=== PATIENT | male | born 1945 | race Caucasian/White ===

== ENCOUNTER 2016-04-01 07:39 | Emergency (ER) | payer MEDICARE ==
[2016-03-19 10:42] VITALS: BMI 27.9
[~2016-04-01 07:39] MED LIST: ABILIFY10 MG PO; AMOXICILLIN500 M1 PO; AMPICILLIN TRI250 MG PO; ASPIRIN81 MG PO; BAYER CHEWABLE81 MG PO; BIAXIN 500 MG500 MG PO; CARAFATE1 G PO; CELEXA20 MG PO; CLONAZEPAM0.25 MG/TA PO; COLACE100 MG PO; DESERYL100 MG PO; DULCOLAX5 MG PO; DUONEB 2.5-0.5 M3 ML NEB; FLOMAX0.4 MG PO; GLUCOPHAGE500 MG PO; HCTZ25 MG PO; HYDROCODONE-APA1 TAB PO; IMDUR30 MG PO; IPRAT-ALBUT 0.5-3 ML UPD; LEVAQUIN750 MG PO; LOPRESSOR25 MG PO; MILK OF MAGNESI30 ML PO; MIRALAX17 GM; MIRALAX17 GM PO; MORPHINE SULF5 MG/ML; MYLANTA LIQUID355 ML PO; NITRO-BID60 GM TP; NITROSTAT0.4 MG SL; NORCO 10/325 TA1 TA1 PO; NORCO 5/325 TAB1 TA1 PO; PEPCID20 MG PO; PHENERGAN25 M1 PO; PLAVIX75 MG PO; PROTONIX40 MG PO; PROZAC20 MG PO; REGLAN10 MG PO; REMERON45 MG PO; SALINE FLUSH10 ML IV; SEROQUEL100 MG PO; SEROQUEL200 MG PO; SEROQUEL300 MG PO; VITAMIN B-1000 MCG/M IM; VITAMIN B-121000 MC3 PO; VITAMIN B-12500 MCG PO; VITAMIN D2000 UNIT PO; VITAMIN D5000 UNIT PO; VOLTAREN100 GM TP; XANAX0.5 MG PO; ZOFRAN4 MG PO
[2016-04-01 09:03] LABS: BASOPHILS 0.3 % (0.0-2.0); HEMATOCRIT 33.5 % (42.0-54.0); HEMOGLOBIN 10.8 g/dL (13.5-17.5); IMMATURE GRANULOCYTES 0.3 % (0-5); LYMPHOCYTES 14.5 % (15-50); MCH 29.8 pg (26.0-34.0); MCHC 32.2 g/dL (31.0-37.0); MCV 92.3 fL (80.0-100.0); MEAN PLATELET VOLUME 10.7 fL (7.4-10.4); MONOCYTES 8.5 % (2-11); NEUTROPHILS 74.4 % (40-80); RBC 3.63 10x6/uL (4.20-6.10); RDW 18.3 % (11.5-14.5); WBC 8.9 10x3/uL (4.8-10.8)
[2016-04-01 09:08] LABS: PLATELET COUNT 384 10x3/uL (130-400)
[2016-04-01 09:21] LABS: ALBUMIN 3.4 g/dL (3.4-5.0); ALKALINE PHOSPHATASE 81 U/L (46-116); ALT (SGPT) 17 U/L (10-68); CALC OSMOLALITY 278 mosm/kg (275-300); CALCIUM 8.3 mg/dL (8.5-10.1); CARBON DIOXIDE 23.8 mmol/L (21.0-32.0); CHLORIDE - SERUM 103 mmol/L (98-107); GLUCOSE 132 mg/dL (74-106); POTASSIUM - SERUM 4.2 mmol/L (3.5-5.1); SODIUM 138 mmol/L (136-145); UREA NITROGEN 14 mg/dL (7-18); eGFR NON AFRICAN AMERICAN 78 mL/min (90-120)
[2016-04-01 09:27] LABS: PRO BNP 777 pg/mL (0-125)
== END 2016-04-01 10:52 | disposition home or self-care (01) ==
LOC: D.ER 07:39
PROVIDERS: Emergency Medicine
DX: J44.1 Chronic obstructive pulmonary disease with (acute) exacerbation (principal); I50.9 Heart failure, unspecified

== ENCOUNTER 2016-04-15 16:18 | Emergency (ER) | payer MEDICARE ==
[2016-03-19 10:42] VITALS: BMI 27.9
[2016-04-15 16:38] LABS: BASOPHILS 0.5 % (0.0-2.0); EOSINOPHILS 3.1 % (0-7); HEMATOCRIT 29.6 % (42.0-54.0); HEMOGLOBIN 9.7 g/dL (13.5-17.5); IMMATURE GRANULOCYTES 0.1 % (0-5); LYMPHOCYTES 28.2 % (15-50); MCH 29.6 pg (26.0-34.0); MCHC 32.8 g/dL (31.0-37.0); MCV 90.2 fL (80.0-100.0); MEAN PLATELET VOLUME 9.9 fL (7.4-10.4); MONOCYTES 7.8 % (2-11); NEUTROPHILS 60.3 % (40-80); PLATELET COUNT 403 10x3/uL (130-400); RBC 3.28 10x6/uL (4.20-6.10); RDW 18.1 % (11.5-14.5); WBC 7.8 10x3/uL (4.8-10.8)
[2016-04-15 17:19] LABS: APTT 28.4 SECONDS (22.8-39.4); INR 1.08 (0.85-1.17); PROTIME 13.8 SECONDS (11.6-15.0)
[2016-04-15 18:15] LABS: ALBUMIN 3.4 g/dL (3.4-5.0); ALKALINE PHOSPHATASE 80 U/L (46-116); ALT (SGPT) 19 U/L (10-68); AMYLASE - SERUM 61 U/L (25-115); BILIRUBIN - TOTAL 0.25 mg/dL (0.2-1.3); CALC OSMOLALITY 276 mosm/kg (275-300); CALCIUM 9.3 mg/dL (8.5-10.1); CARBON DIOXIDE 23.5 mmol/L (21.0-32.0); CHLORIDE - SERUM 105 mmol/L (98-107); LIPASE 101 U/L (73-393); POTASSIUM - SERUM 4.3 mmol/L (3.5-5.1); PROTEIN - SERUM 7.8 g/dL (6.4-8.2); SODIUM 140 mmol/L (136-145); UREA NITROGEN 11 mg/dL (7-18); eGFR NON AFRICAN AMERICAN 78 mL/min (90-120)
[2016-04-15 18:16] LABS: GLUCOSE 81 mg/dL (74-106)
== END 2016-04-15 19:10 | disposition home or self-care (01) ==
LOC: D.ER 16:18
PROVIDERS: Emergency Medicine; Nurse Practitioner Acute Care
DX: R10.9 Unspecified abdominal pain (principal)

== ENCOUNTER 2016-04-20 15:09 | Emergency (ER) | payer MEDICARE ==
[2016-03-19 10:42] VITALS: BMI 27.9
== END 2016-04-20 17:41 | disposition left against medical advice (07) ==
LOC: D.ER 15:09
DX: R11.2 Nausea with vomiting, unspecified (principal)

== ENCOUNTER 2016-04-21 11:05 | Emergency (ER) | payer MEDICARE ==
[2016-03-19 10:42] VITALS: BMI 27.9
[2016-04-21 11:55] LABS: BASOPHILS 0.3 % (0.0-2.0); EOSINOPHILS 2.1 % (0-7); HEMATOCRIT 31.4 % (42.0-54.0); HEMOGLOBIN 10.4 g/dL (13.5-17.5); IMMATURE GRANULOCYTES 0.2 % (0-5); LYMPHOCYTES 29.9 % (15-50); MCH 30.1 pg (26.0-34.0); MCHC 33.1 g/dL (31.0-37.0); MEAN PLATELET VOLUME 9.8 fL (7.4-10.4); MONOCYTES 8.7 % (2-11); NEUTROPHILS 58.8 % (40-80); PLATELET COUNT 475 10x3/uL (130-400); RBC 3.45 10x6/uL (4.20-6.10); RDW 18.8 % (11.5-14.5); WBC 6.3 10x3/uL (4.8-10.8)
[2016-04-21 12:10] LABS: ALBUMIN 3.5 g/dL (3.4-5.0); ALKALINE PHOSPHATASE 85 U/L (46-116); ALT (SGPT) 16 U/L (10-68); BILIRUBIN - TOTAL 0.32 mg/dL (0.2-1.3); CALC OSMOLALITY 276 mosm/kg (275-300); CALCIUM 9.6 mg/dL (8.5-10.1); CARBON DIOXIDE 26.9 mmol/L (21.0-32.0); CHLORIDE - SERUM 104 mmol/L (98-107); GLUCOSE 99 mg/dL (74-106); PROTEIN - SERUM 8.8 g/dL (6.4-8.2); SODIUM 140 mmol/L (136-145); UREA NITROGEN 7 mg/dL (7-18); eGFR NON AFRICAN AMERICAN 78 mL/min (90-120)
[2016-04-21 12:14] LABS: APTT 28.6 SECONDS (22.8-39.4)
[2016-04-21 12:21] LABS: INR 0.97 (0.85-1.17); PROTIME 12.7 SECONDS (11.6-15.0)
== END 2016-04-21 14:33 | disposition home or self-care (01) ==
LOC: D.ER 11:05
PROVIDERS: Emergency Medicine
DX: R10.9 Unspecified abdominal pain (principal); R11.10 Vomiting, unspecified; E11.9 Type 2 diabetes mellitus without complications; I10 Essential (primary) hypertension

== ENCOUNTER 2016-04-24 05:22 | Emergency (ER) | payer MEDICARE ==
[2016-03-19 10:42] VITALS: BMI 27.9
== END 2016-04-24 05:44 | disposition home or self-care (01) ==
LOC: D.ER 05:22
DX: S39.012A Strain of muscle, fascia and tendon of lower back, initial encounter (principal); W01.0XXA Fall on same level from slipping, tripping and stumbling without subsequent striking against object, initial encounter; Y93.89 Activity, other specified; Y92.019 Unspecified place in single-family (private) house as the place of occurrence of the external cause; M48.36 Traumatic spondylopathy, lumbar region

== ENCOUNTER 2016-05-20 08:06 | Emergency (ER) | payer MEDICARE ==
[2016-03-19 10:42] VITALS: BMI 27.9
== END 2016-05-20 08:49 | disposition home or self-care (01) ==
LOC: D.ER 08:06
DX: S39.012A Strain of muscle, fascia and tendon of lower back, initial encounter (principal); W19.XXXA Unspecified fall, initial encounter; Y93.89 Activity, other specified; Y92.89 Other specified places as the place of occurrence of the external cause; M51.36 Other intervertebral disc degeneration, lumbar region

== ENCOUNTER 2016-05-21 14:15 | Emergency (ER) | payer MEDICARE ==
[2016-03-19 10:42] VITALS: BMI 27.9
== END 2016-05-21 17:48 | disposition home or self-care (01) ==
LOC: D.ER 14:15
DX: M25.552 Pain in left hip (principal)

== ENCOUNTER 2016-06-02 14:09 | Emergency (ER) | payer MEDICARE ==
[2016-03-19 10:42] VITALS: BMI 27.9
== END 2016-06-02 19:45 | disposition home or self-care (01) ==
LOC: D.ER 14:09
DX: M25.562 Pain in left knee (principal); M25.561 Pain in right knee; M54.5 Low back pain; M92.51 Juvenile osteochondrosis of proximal tibia; Z91.81 History of falling

== ENCOUNTER 2016-06-09 11:38 | Inpatient (IN) | payer MEDICARE ==
[~2016-06-09] VITALS: Ht 170.2 cm; Wt 77.1 kg
[2016-06-09 10:50] VITALS: BP 154/74
--- NOTE | 2016-06-09 10:50 | NUR ---
RECEIVED PATIENT FROM [facility] ER, PATIENT THERE FOR SUICIDE ATTEMPT, HAD TAKEN MORE IMDUR THAN HE SHOULD THIS AM. ARRIVED PER EMS ON STRETCHER, PATIENT ABLE TO AMBULATE. ALERT AND ORIENTED TIMES THREE, PER RECORDS HAS HISTORY OF DEMENTIA, BUT PRESENTS ORIENTED WITH APPROPRIATE RESPONSE TO QUESTIONS. STATES HE HAD BEEN OFF HIS MEDICATIONS, KNEW WHAT HE DID WAS NOT RIGHT, " I NEED TO BE BACK ON MY MEDICATIONS." CONTRACTED FOR SAFETY WITH NO CURRENT SUICIDAL IDEATIONS. ASSESSMENT COMPLETE. COOPERATIVE. PATIENT ARRIVED IN HOSPITAL GOWN ONLY, ASKED EMS AT THAT TIME IF PATIENT HAD ANY BELONGINGS, THEY STATED NO. PATIENT WITHOUT ANY BELONGINGS. ORIENTED TO UNIT.
[2016-06-09] MEDS ORDERED: SEROQUEL25 MG PO (13:56)
[2016-06-09] MEDS ORDERED: PEPCID20 MG PO (13:57)
[2016-06-09] MEDS ORDERED: ZOCOR40 MG PO (13:58)
[2016-06-09] MEDS ORDERED: REMERON15 MG PO (13:58)
[2016-06-09] MEDS ORDERED: ISOSORBIDE MONO30 M1 PO (13:59)
[2016-06-09] MEDS ORDERED: FOLBEE PLUS TAB1 TAB PO (14:00)
[2016-06-09] MEDS ORDERED: COLACE100 MG PO (14:03)
[2016-06-09] MEDS ORDERED: IPRAT-ALBUT 0.5-3 ML UPD (14:04)
[2016-06-09] MEDS ORDERED: HYDROCODONE-APA1 TAB PO (15:07)
[2016-06-09 15:32] LABS: BASOPHILS 0.2 % (0.0-2.0); EOSINOPHILS 0.3 % (0-7); HEMATOCRIT 34.2 % (42.0-54.0); HEMOGLOBIN 11.2 g/dL (13.5-17.5); IMMATURE GRANULOCYTES 0.2 % (0-5); LYMPHOCYTES 21.2 % (15-50); MCH 29.9 pg (26.0-34.0); MCHC 32.7 g/dL (31.0-37.0); MCV 91.2 fL (80.0-100.0); MEAN PLATELET VOLUME 10.6 fL (7.4-10.4); MONOCYTES 9.4 % (2-11); NEUTROPHILS 68.7 % (40-80); PLATELET COUNT 425 10x3/uL (130-400); RBC 3.75 10x6/uL (4.20-6.10); RDW 17.9 % (11.5-14.5); WBC 6.6 10x3/uL (4.8-10.8)
--- NOTE | 2016-06-09 15:58 | NUR ---
CONTACTED PHARMACY REGARDING PATIENT TAKES HYDROCODONE PRN FOR BACK PAIN, ATTEMPTED TO PUT IN ORDER AND IT CONFLITS WITH ALLERGIES OF PERCOCET AND ULTRAM. OK PER PHARMACIST RICH
[2016-06-09 16:06] LABS: HEMOGLOBIN A1C 5.6 % (4.8-6.0)
[2016-06-09 16:20] VITALS: BP 154/74; Ht 170.2 cm; Wt 77.1 kg
--- NOTE | 2016-06-09 16:30 | NUR ---
PATIENT STATING THAT HE DROVE HIMSELF TO [facility] ER, HAD ON CLOTHING, A WALLET AND HIS CARE KEYS. NURSE REMINDED PATIENT THAT WHILE HE WAS ON STRETCHER I ASKED EMS STAFF IF HE HAD BELONGINGS AND THEY STATED NO. CALLED PLACED TO [facility] SPOKE WITH NURSE KYMBERLY SINCLAIR RN REGARDING PATIENT CONCERNS REGARDING HIS BELONGINGS DID NOT COME WITH HIM TO JAIL, SHE STATES THEY WERE GIVEN TO EMS STAFF BUT SHE WOULD DOUBLE CHECK THIS AND CALL US BACK. INFORMED PAITENT THAT I DID FOLLOW UP REGARDING HIS BELONGINGS AND THEY WERE CHECKING." SOMEBODY BETTER FIND THEM, OR IM GOING TO SEND MY BROTHER TO GET THEM, OR I WILL HAVE TO WHEN I GET OUT OF HERE." ASSURED PATIENT THAT WE WERE CHECKING ON IT.
[2016-06-09 16:38] LABS: ALBUMIN 3.6 g/dL (3.4-5.0); ALKALINE PHOSPHATASE 85 U/L (46-116); ALT (SGPT) 17 U/L (10-68); BILIRUBIN - TOTAL 0.35 mg/dL (0.2-1.3); CALC OSMOLALITY 279 mosm/kg (275-300); CALCIUM 9.3 mg/dL (8.5-10.1); CARBON DIOXIDE 26.5 mmol/L (21.0-32.0); CHLORIDE - SERUM 104 mmol/L (98-107); CHOL - HDL RATIO 3.6 ratio (2.3-4.9); CHOLESTEROL, TOTAL 138 mg/dL (0-200); CREATININE - SERUM 0.7 mg/dL (0.6-1.3); GLUCOSE 108 mg/dL (74-106); HDL CHOLESTEROL 38 mg/dL (32-96); LDL CHOLESTEROL 80 mg/dL (0-100); LDL-HDL RATIO 2.1 ratio (1.5-3.5); POTASSIUM - SERUM 4.5 mmol/L (3.5-5.1); PROTEIN - SERUM 8.2 g/dL (6.4-8.2); SODIUM 140 mmol/L (136-145); THYROID STIMULATING HORMONE 0.31 uIU/mL (0.36-3.74); TRIGLYCERIDE 101 mg/dL (30-200); UREA NITROGEN 12 mg/dL (7-18); eGFR NON AFRICAN AMERICAN > 90 mL/min (90-120)
[2016-06-09 17:00] LABS: COLOR YELLOW (YELLOW)
[2016-06-09 17:01] LABS: APPEARANCE CLEAR (CLEAR); BILIRUBIN NEGATIVE (NEGATIVE); GLUCOSE NEGATIVE (NEGATIVE); KETONE NEGATIVE (NEGATIVE); LEUKOCYTE ESTERASE NEGATIVE (NEGATIVE); NITRITE NEGATIVE (NEGATIVE); PROTEIN NEGATIVE (NEGATIVE); SPECIFIC GRAVITY 1.015 (1.005-1.020); UROBILINOGEN NORMAL (NORMAL)
--- NOTE | 2016-06-09 17:03 | PSY ---
PATIENT NAME:MATT PABLO MEDICAL RECORD: [id number] : 47 LOCATION:[facility] ADMISSION DATE: 06/09/16 ACCOUNT: [id number] PSYCHIATRIC EVALUATION DATE OF EVALUATION: 06/09/16 Initial Psychiatric Workup IDENTIFYING DATA: This is one of numerous psychiatric hospitalizations in his lifetime for this 71-year-old white male. HISTORY OF PRESENT ILLNESS: This patient was accepted on transfer from [facility] Emergency Department. He had been having suicidal ideation and took an unknown quantity of Imdur yesterday in a suicide attempt. On interview today, the patient states that he had become very distraught about the situation with one of his daughters who lives in [place]. The patient himself had actually moved to [place] and live there for about 8 or 9 months, but had become estranged from the daughter and moved back home. The daughter evidently had returned to drug use, which upset the patient greatly. Also, while he was in [place], he had reestablished contact with ex-. However, she recently and the patient states that he became despondent over these things. He had moved back down to [place] and is living with a relative, but became quite depressed. The patient in the past has shown a significant depressive symptoms and has been treated with antidepressants. He also has had episodic psychotic symptoms and has been treated with neuroleptics such as Seroquel. In the past, he has had difficulties with drug and alcohol abuse, although he states at the present time, he is not abusing anything. In the past, he has had a number of hospitalizations because of suicidality or actual suicide attempts. Typically, he does well after a fairly brief hospital stays. PAST MEDICAL HISTORY: Significant for type 2 diabetes, coronary artery disease, benign prostatic hypertrophy, and anemia. FAMILY HISTORY: Significant for depression in several family members. SOCIAL HISTORY: The patient does have a long past history of alcoholism and multiple medication abuse. 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 He is currently living with a brother. ALLERGIES: INCLUDE OXYCODONE, TRAMADOL, AND NAPROXEN. MENTAL STATUS: On interview, the patient is pleasant and cooperative and makes good eye contact. Mood is dysphoric. Affect is bland. Speech is fairly fluent. Content of thought is positive for recent suicidal ideation. Sensorium is essentially clear. The patient is oriented to person, place and time. Fairly intact. Memory, concentration is fair. DIAGNOSTIC IMPRESSION: AXIS I: Major depressive disorder -- recurrent, history of polysubstance abuse. AXIS II: Cluster C personality traits. AXIS III: Type 2 diabetes, history of unstable angina, hypertension and gastroesophageal reflux disease. AXIS IV: Moderate. AXIS V: 36. PLAN: 1. The patient is admitted for medication revision as indicated. 2. Supportive therapy. 3. We will coordinate with the patient regarding aftercare. TRANSINT:[id number] Voice Confirmation ID: [id number] DOCUMENT ID: [id number] GAYE CORDOVA III, MD at 1703 CC: [id number] DICTATION DATE: 06/09/16 1204 ASSEMBLY MACHINE SET UP MECHANIC: 06/09/16 1331 ADM IN [facility] [address] [place] [address]
[2016-06-09 19:42] VITALS: BP 136/55
[2016-06-09 21:56] VITALS: BP 136/55
--- NOTE | 2016-06-10 02:38 | NUR ---
B) Recieved patient in the day room sitting in a chair and watching TV, no SI this shift, alert and oriented X 3, I) Administered perscribed medications, redirected as needed, contracted for safety, R) Medication compliant, calm and cooperative, P0 Continue plan of care, continue to monitor for safety.
--- NOTE | 2016-06-10 06:23 | NUR ---
PRN NORCO GIVEN FOR BACK PAIN 8 OF 10 AT 0620.
[2016-06-10 08:00] VITALS: BP 136/65
[2016-06-10 11:18] VITALS: BP 136/65
--- NOTE | 2016-06-10 11:50 | NUR ---
Follow up with [facility] regarding patient belongings, per aPula Alcantar , she has located them and has them locked up in ER. Informed her that patient brother Edison will retrieve those items today. Nurse spoke to patient brother per his request to give him code word, visitation hours, to bring him clothing and to turkey picker his belonging at [facility].
--- NOTE | 2016-06-10 12:46 | NUR ---
B.) Alert and oriented times four. Patient has insight to reason he is here. "I know I should'nt have done that, I just need my meds started back up right." Positive outlook, "I know once I'm back on my meds everything will be ok, I'm going back to work and working keeps me happy." I.) Administer medications and monitor compliance. Assess for any suicidal ideations or depression. Contract for safety. Encourage expression of feelings. R.) Compliant with medications. Contracted for safety. Social with others and actively participated group. Smiles and converses with staff. No suicidal ideations. Safety monitored. Continue with plan of care and monitoring.
--- NOTE | 2016-06-10 19:57 | NUR ---
RECEIVED IN DAYROOM. SITTING IN RECLINER WATCHING TV. NOT SOCIALIZING WITH PEERS. ALERT AND ORIENTED. DENIES THOUGHTS OF SELF HARM. SOCIAL WITH THIS STAFF MEMBER. REMINISCING ABOUT THE LAST TIME WE HAD SEEN EACH OTHER HERE. ENCOURAGE TO EXPRESS ANY FEELINGS OF SELF HARM. CONTINUES TO SIT QUIETLY IN CHAIR. CONTINUE PLAN OF CARE
[2016-06-10 20:00] VITALS: BP 114/50
[2016-06-10 21:00] VITALS: BP 114/50
[2016-06-11 08:20] LABS: RAPID PLASMA REAGIN Non Reactive (Non Reactive)
[2016-06-11 09:17] LABS: FOLATE (FOLIC ACID) - SERUM 13.6 ng/mL (>3.0); VITAMIN D 25 HYDROXY 27.1 ng/mL (30.0-100.0)
[2016-06-11 09:50] VITALS: BP 100/64
--- NOTE | 2016-06-11 11:05 | PN ---
PATIENT:MATT PABLO MEDICAL RECORD: [id number] LOCATION:[facility] ADMISSION DATE: 06/09/16 PROGRESS NOTE DATE OF SERVICE: 06/10/2016 SUBJECTIVE: No new complaint. OBJECTIVE: The patient is showing some improvement. He is tolerating the Lexapro well. No further suicidal statements or behaviors. On exam, mood is for the most part euthymic. Affect is bland. Speech is fairly fluent. Content of thought is negative for suicidal intents. Sensorium is unchanged. ASSESSMENT: No change in diagnosis. PLAN: 1. Maintain current medications and supportive therapy. 2. The patient continues to do well, anticipate discharge tomorrow. TRANSINT:[id number] Voice Confirmation ID: [id number] DOCUMENT ID: [id number] GAYE CORDOVA III, MD at 1105 CC: [id number] DICTATION DATE: 06/10/16 1235 MILK RECEIVER TANK TRUCK: 06/10/16 1256 ADM IN [place] [id number] [place] [id number]
[2016-06-11] MEDS ORDERED: LEXAPRO10 MG PO (11:31)
--- NOTE | 2016-06-11 13:23 | NUR ---
SW SPOKE WITH PT AGAIN AND OFFERED OUTPATIENT SERVICES. PT STATED HE DOES NOT WANT TO GO TO OUTPATIENT TREATMENT.
--- NOTE | 2016-06-11 16:18 | NUR ---
B) Alert and oriented, pleasant mood, med compliant, cooperative, no aggressive behavior reported, no suicidal ideations reported. I) Admin meds as ordered, provide group activity. R) no s/s adverse reaction to medications noted, brenna well. P)Cont plan of care including meds and group therapy until discharge later this shift.
--- NOTE | 2016-06-11 18:00 | NUR ---
PATIENT DISCHARGED TO HOME VIA PRIVATE VEHICLE. PERSONAL BELONGINGS RETURNED TO PATIENT. PRESCRIPION CALLED INTO PHARMANCY OF PATIENT'S CHOICE. DISCHARGE PAPERWORK FAXED TO PATIENT'S PCP. CONDITION STABLE AT TIME OF DISCHARE.
--- NOTE | 2016-06-12 10:46 | DS ---
PATIENT:MATT PABLO :47 MEDICAL RECORD: [id number] DISCHARGE SUMMARY ADMISSION DATE: 06/09/16 DISCHARGE DATE: 06/11/16 DATE OF ADMISSION: 06/09/2016 DATE OF DISCHARGE: 06/11/2016 HISTORY OF PRESENT ILLNESS: One of numerous psychiatric hospitalizations for this 71-year-old white male, the patient has a long past history of depression and polysubstance abuse. He had become upset regarding family situation. He had been living in [place] for a while and recently returned to [place]. He overdosed on Imdur. For further details, please see previously dictated history. COURSE IN THE HOSPITAL: The patient was seen in consultation by Dr. Waters, who noted the ongoing comorbidities of hypertension, type 2 diabetes, coronary artery disease, hyperlipidemia, prostatic hypertrophy, peptic ulcer disease, chronic low back pain and constipation. The patient was started on Lexapro 10 mg daily for his depressive symptoms. He was maintained on Remeron 15 mg at bedtime for additional antidepressant affect as well as assistance with insomnia. The patient did well, showed a good resolution of his suicidal ideation and was in stable euthymic mood. At the time of discharge, he does have strong family support. He has a job that he will be returning to tomorrow. Nonpsychiatric medications that were continued included vitamin B supplements, Colace, Glucophage, Imdur, Zocor, Pepcid, Plavix, p.r.n. [place] and p.r.n. Ativan. FINAL DIAGNOSES: AXIS I: Major depressive disorder -- recurrent, history of polysubstance abuse. AXIS II: Cluster C personality traits. AXIS III: Type 2 diabetes, history of angina, hypertension, hypercholesterolemia, gastroesophageal reflux disease. AXIS IV: Moderate. AXIS V: 50. PLAN: 1. The patient is discharged on current medications. 2. Follow up with his primary care physician. 3. Diet and activities as tolerated. TRANSINT:[id number] Voice Confirmation ID: [id number] DOCUMENT ID: [id number] GAYE CORDOVA III, MD at 1046 CC: [id number] DICTATION DATE: 06/11/16 1135 REPAIRER SASH AND DOOR: 06/12/16 0915 DIS IN 06/11/16 [facility] [address] [place] [address]
== END 2016-06-11 18:00 | disposition home or self-care (01) | DRG 885 ==
LOC: D.PSYCH 11:38
PROVIDERS: ADMIT Psychiatry & Neurology Psychiatry
DX: F33.9 Major depressive disorder, recurrent, unspecified (principal); R45.851 Suicidal ideations; E11.9 Type 2 diabetes mellitus without complications; I10 Essential (primary) hypertension; E78.5 Hyperlipidemia, unspecified; K21.9 Gastro-esophageal reflux disease without esophagitis; I25.10 Atherosclerotic heart disease of native coronary artery without angina pectoris; F03.90 Unspecified dementia, unspecified severity, without behavioral disturbance, psychotic disturbance, mood disturbance, and anxiety; Z91.81 History of falling; G89.29 Other chronic pain; M54.9 Dorsalgia, unspecified; K59.00 Constipation, unspecified; J44.9 Chronic obstructive pulmonary disease, unspecified; Z87.891 Personal history of nicotine dependence; F10.21 Alcohol dependence, in remission; E55.9 Vitamin D deficiency, unspecified

== ENCOUNTER 2016-06-16 13:45 | Emergency (ER) | payer MEDICARE ==
[~2016-06-16 13:45] MED LIST changes: +FOLBEE PLUS TAB1 TAB PO; +ISOSORBIDE MONO30 M1 PO; +LEXAPRO10 MG PO; +REMERON15 MG PO; +SEROQUEL25 MG PO; +ZOCOR40 MG PO
== END 2016-06-16 15:10 | disposition home or self-care (01) ==
LOC: D.ER 13:45
DX: M54.5 Low back pain (principal); S39.012A Strain of muscle, fascia and tendon of lower back, initial encounter; W19.XXXA Unspecified fall, initial encounter; Y93.89 Activity, other specified; Y92.019 Unspecified place in single-family (private) house as the place of occurrence of the external cause; M62.830 Muscle spasm of back; M54.30 Sciatica, unspecified side; E11.9 Type 2 diabetes mellitus without complications

== ENCOUNTER 2016-06-17 11:11 | Emergency (ER) | payer MEDICARE ==
[2016-06-17 12:47] LABS: BASOPHILS 0.3 % (0.0-2.0); EOSINOPHILS 1.8 % (0-7); HEMATOCRIT 31.9 % (42.0-54.0); HEMOGLOBIN 10.4 g/dL (13.5-17.5); IMMATURE GRANULOCYTES 0.1 % (0-5); LYMPHOCYTES 30.3 % (15-50); MCH 30.3 pg (26.0-34.0); MCHC 32.6 g/dL (31.0-37.0); MEAN PLATELET VOLUME 10.5 fL (7.4-10.4); MONOCYTES 6.4 % (2-11); NEUTROPHILS 61.1 % (40-80); PLATELET COUNT 421 10x3/uL (130-400); RBC 3.43 10x6/uL (4.20-6.10); RDW 17.3 % (11.5-14.5); WBC 7.1 10x3/uL (4.8-10.8)
[2016-06-17 13:00] LABS: ALBUMIN 3.6 g/dL (3.4-5.0); ALKALINE PHOSPHATASE 77 U/L (46-116); ALT (SGPT) 17 U/L (10-68); BILIRUBIN - TOTAL 0.26 mg/dL (0.2-1.3); CALC OSMOLALITY 281 mosm/kg (275-300); CALCIUM 9.1 mg/dL (8.5-10.1); CARBON DIOXIDE 25.5 mmol/L (21.0-32.0); CHLORIDE - SERUM 107 mmol/L (98-107); GLUCOSE 99 mg/dL (74-106); POTASSIUM - SERUM 4.7 mmol/L (3.5-5.1); PROTEIN - SERUM 8.2 g/dL (6.4-8.2); SODIUM 141 mmol/L (136-145); UREA NITROGEN 15 mg/dL (7-18); eGFR NON AFRICAN AMERICAN 78 mL/min (90-120)
[2016-06-17 13:08] LABS: CREATINE KINASE 195 UL (21-232)
[2016-06-17 13:11] LABS: TROPONIN-I < 0.017 ng/mL (0.000-0.060)
== END 2016-06-17 13:41 | disposition home or self-care (01) ==
LOC: D.ER 11:11
PROVIDERS: Nurse Practitioner Family
DX: J20.9 Acute bronchitis, unspecified (principal); B34.9 Viral infection, unspecified; R07.89 Other chest pain

== ENCOUNTER 2016-07-19 16:53 | Observation (INO) | payer MEDICARE ==
[~2016-07-19] VITALS: Ht 170.2 cm; Wt 77.3 kg
--- NOTE | ~2016-07-19 | HEMODYNAMI ---
PATIENT:MATT PABLO MEDICAL RECORD: [id number] : 47 LOCATION:[facility] D.2114 ADMISSION DATE: 07/19/16 Generatedon:07/20/201612:53 Patient name: MATT PABLO Patient #: [id number] SSN: [id number] : 1945 Date of study: 07/20/2016 Page: Of Hemodynamic Procedure Report Patient Data Patient Demographics Procedure consent was obtained First Name: MATT Gender: Male Last Name: SAMY : 1945 Middle Initial: BERTA Age: 71 year(s) Patient #: [id number] Race: SSN: [id number] Additional ID: [id number] Contact details [address]: [address] [place] [address] State: [place] City: [place] Zip code: [address] Past Medical History History of disease Date Diagnosis Comments CAD Allergies Allergen Reaction Date Comments Reported Other 05/24/2014 oxycodone allergy Other 05/24/2014 propoxyphene allergy Other 05/24/2014 napsylate allergy Other 05/24/2014 tramadol allergy Other 03/19/2016 Oxycodone, HCL, allergy Tramadol HCL, Darvocet Other 07/20/2016 propoxyphhene, allergy napsylate,tramadol,HCL Admission Admission Data Admission Date: 07/19/2016 Admission Time: 20:19 Room #: D.2114 Height (in.): 67 BSA: 1.89 (m2) Height (cm.): 170.18 BMI: 26.63 (kg/m2) Weight (lbs.): 170 Weight (kg.): 77.11 Lab Results Lab Result Date: 07/20/2016 Lab Result Time: 0:00 Biochemistry Name Units Result Min Max BUN mg/dl 12 --(-*--)-- 7 18 Creatinine mg/dl 0.9 --(-*--)-- 0.6 1.3 Creatinine l 90 --(-*--)-- 21 215 Kinase Troponin l ng/ml 0.017 --(-*--)-- 0 0.06 CBC Name Units Result Min Max Hematocrit % 34.7 *-(----)-- 42 54 Hemoglobin g/dl 11 *-(----)-- 13.5 17.5 Procedure Procedure Types Cath Procedure Diagnostic Procedure [facility] w/Coronaries PCI Procedure Coronary Stent Initial PTCA Initial Miscellaneous Procedures Moderate Sedation up to 30 minutes Procedure Description Procedure Date Procedure Date: 07/20/2016 Procedure Start Time: 12:30 Procedure End Time: 12:51 Procedure Staff Name Function Calli Zaheer RT Scrub Ramírez Rahman RN Nurse Ted Justice MD Performing Physician Lan Thomson RT Monitor Procedure Data Cath Procedure Fluoroscopy Diagnostic fluoroscopy Total fluoroscopy Time: 5.3 time: 5.3 min min Diagnostic fluoroscopy Total fluoroscopy dose: 751 dose: 751 mGy mGy Contrast Material Contrast Material Type Amount (ml) Isovue 300 98 Entry Location Entry Primary Successful Side Size Upsize Upsize Entry Closure Succes sful Closure Location (Fr) 1 (Fr) 2 (Fr) Remarks Device Remarks Femoral Right 5 Fr 6 Fr Exoseal artery Short Estimated blood loss: 10 ml Diagnostic catheters Device Type Used For End Catheter Placement Cordis 5Fr Pigtail Procedure Catheter (MP) Cordis 5Fr JL 4.0 Procedure Catheter (MP) Diagnostic Infinity 5Fr Procedure JL 3.5 catheter Cordis 5Fr 3DRC Catheter Procedure (MP) Procedure Complications No complications Procedure Medications Medication Administration Route Dosage Oxygen NC 2 l/min Heparin Flush Bag added to field 2 bags (1000units/500ml NS) 0.9% NaCl I.V. 100 ml/hr Fentanyl I.V. 50 mcg Versed I.V. 1 mg Fentanyl I.V. 50 mcg Versed I.V. 1 mg Fentanyl I.V. 50 mcg Fentanyl I.V. 50 mcg Heparin Bolus I.V. 4000 units Hemodynamics Rest BSA: 1.89 (m2) HGB: 11 (g/dl) O2 Consumption: Estimated: 229.51 (ml/min) O2 Cons umption indexed: Estimated:121.43 (ml/min/m) Heart Rate: 85 (bpm) Snapshots Pre Cath Intra NCS Post Cath Vital Signs Time Heart Resp SPO2 etCO2 [id number] NIBP (mmHg) Rhythm Pain Sedation Rate (ipm) (%) (mmHg) (mmHg) Status Level (bpm) 12:11:42 74 17 100 0 0 170/82(139) NSR 0 (11) 10(A) , No pain 12:16:04 86 17 100 0 0 168/85(127) NSR 0 (11) 10(A) , No pain 12:20:28 76 17 98 0 0 160/71(126) NSR 0 (11) 10(A) , No pain 12:24:54 76 17 96 0 0 135/64(111) NSR 0 (11) 10(A) , No pain 12:29:08 75 18 97 0 0 130/71(105) NSR 0 (11) 9(A) , No pain 12:33:20 85 19 97 0 0 146/72(118) NSR 0 (11) 9(A) , No pain 12:37:34 89 18 97 0 0 140/82(110) NSR 0 (11) 9(A) , No pain 12:41:50 91 17 97 0 0 136/72(103) NSR 0 (11) 9(A) , No pain 12:46:02 95 17 98 0 0 147/77(102) NSR 0 (11) 10(A) , No pain 12:50:18 89 13 98 0 0 138/78(105) NSR 0 (11) 10(A) , No pain Medications Time Medication Route Dose Verified Delivered Reason Notes Effectiveness by by 12:12:34 Oxygen NC 2 Ramírez Simpsony Per physician l/min Josiah Rahman RN RN 12:12:44 Heparin Flush added 2 Ramírez Ramírez used for Bag to bags Josiah Rahman RN procedure (1000units/500ml field RN NS) 12:12:54 0.9% NaCl I.V. 100 Ramírez Ramírez Per physician ml/hr Josiah Rahman RN RN 12:22:42 Fentanyl I.V. 50 Ramírez Ramírez for sedation mcg Josiah Rahman RN RN 12:22:49 Versed I.V. 1 mg Ramírez Ramírez for sedation Josiah Rahman RN RN 12:28:31 Fentanyl I.V. 50 Ramírez Ramírez for sedation mcg Josiah Rahman RN RN 12:28:39 Versed I.V. 1 mg Ramírez Ramírez for sedation Josiah Rahman RN RN 12:30:28 Fentanyl I.V. 50 Ramírez Elmore for sedation mcg Josiah Rahman RN RN 12:34:03 Fentanyl I.V. 50 Ramírez Elmore for sedation mcg Josiah Rahman RN RN 12:37:06 Heparin Bolus I.V. 4000 Ramírez Elmore for units Josiah Rahman RN anticoagulation drying supervisor Log Time Note 11:51:39 Ramírez Rahman RN sent for patient. Start room use. 11:51:40 Time tracking: Regular hours 11:51:43 Plan of Care:Hemodynamics will remain stable., Cardiac rhythm will remain stable., Comfort level will be maintained., Respiratory function will remain adequate., Patient/ family verbilizes understanding of procedure., Procedure tolerated without complication., Recovers from procedure without complications.. 12:06:22 Warm blankets applied, and bria hugger turned on for patient comfort. 12:06:22 Patient received from PCU to CCL 1 Alert and oriented. Tansferred to table in Supine position. 12:06:23 Correct patient and procedure confirmed by team. 12:06:24 ECG and BP/O2 sat monitors applied to patient. 12:06:24 Signed procedure consent form obtained from patient. 12:06:25 Full Disclosure recording started 12:10:28 Vital chart was started 12:12:34 Oxygen 2 l/min NC was administered by Ramírez Rahman RN; Per physician; 12:12:44 Heparin Flush Bag (1000units/500ml NS) 2 bags added to field was administered by Ramírez Rahman RN; used for procedure; 12:12:54 0.9% NaCl 100 ml/hr I.V. was administered by Ramírez Rahman RN; Per physician; 12:14:07 Baseline sample Acquired. 12:14:11 Rhythm: sinus rhythm 12:15:36 H&P Date Dictated: 07/20/2016 Emergent; H&P N/A. 12:15:37 Pre-procedure instructions explained to patient. 12:15:38 Pre-op teaching completed and patient verbalized understanding. 12:15:40 Family unavailable. 12:15:41 Patient NPO since Midnight. 12:16:15 Patient allergic to Other allergypropoxyphhene, napsylate,tramadol,HCL 12:16:18 Is the patient allergic to Iodine/contrast media? No. 12:16:20 Is patient on blood thinner?Yes 12:16:24 ACC The patient was administered the following blood thiners within the last 24 hours: ACCPlavix 12:16:28 Patient diabetic? Yes. 12:16:29 If diabetic: On Metformin? Yes 12:16:32 If on Metformin: Last Dose? 07/19/2016 12:16:39 Previous problem with sedation/anesthesia? No ? 12:16:42 Snore? No 12:16:43 Sleep apnea? No 12:16:44 Opens mouth fully? Yes 12:16:44 Deviated septum? No 12:16:46 Sticks out tongue? Yes 12:16:49 Airway obstruction? No ? 12:16:50 Dentures? No ? 12:16:53 Pre procedure: right dorsailis pedis pulse 1+ Palpable, but thready & weak; easily obliterated 12:16:55 Patient pain scale 9/10 ?. 12:17:03 IV patent on arrival in left antecubital with 0.9% NaCl at [facility]. 12:19:53 Lab Result : Troponin l 0.017 ng/ml 12:19:53 Lab Result : Hemoglobin 11 g/dl 12:19:53 Lab Result : Hematocrit 34.7 % 12:19:53 Lab Result : BUN 12 mg/dl 12:19:53 Lab Result : Creatinine 0.9 mg/dl 12:19:53 Lab Result : Creatinine Kinase 90 l 12:19:56 Lab results completed and on chart. 12:19:58 Right groin area was prepped with chlora-prep and draped in sterile fashion 12:19:59 Alarms reviewed by R. N. 12:20:00 Sharps counted by scrub and verified by R.N. 12:20:02 Use device set Femoral Dx 12:20:03 Tegaderm 4 x 4 opened to sterile field. 12:20:05 Acist Hand Control opened to sterile field. 12:20:05 Acist Manifold opened to sterile field. 12:20:06 Bag Decanter opened to sterile field. 12:20:06 Acist Syringe opened to sterile field. 12:20:07 Terumo 5Fr [place] Sheath opened to sterile field. 12:20:07 Medline Cath Pack opened to sterile field. 12:20:08 St Buck 260cm J .035 wire opened to sterile field. 12:: Diagnostic Infinity 5Fr Multipack catheter opened to sterile field. ::52 Final Timeout: patient, procedure, and site verified with staff and physician. All members of the team are in agreement. :: --------ALL STOP TIME OUT------ :: Physician arrived 12::54 Right groin site verified by team. 12::56 Physical assessment completed. ASA score P 2 - A patient with mild systemic disease as per Ted Justice MD. 12:21:01 Sedation plan: IV Moderate Sedation Versed, Fentanyl 12::54 Zero performed for pressure channel P1 12::42 Fentanyl 50 mcg I.V. was administered by Ramírez Rahman RN; for sedation; 12::49 Versed 1 mg I.V. was administered by Ramírez Rahman RN; for sedation; 12:24:37 Zero performed for pressure channel P1 12:28:31 Fentanyl 50 mcg I.V. was administered by Ramírez Rahman RN; for sedation; 12::39 Versed 1 mg I.V. was administered by Ramírez Rahman RN; for sedation; 12:30:14 Procedure started. 12:30:16 Local anesthetic to right femoral artery with Lidocaine 2% by Ted Justice MD.INITIAL ACCESS ONLY 12:30:28 Fentanyl 50 mcg I.V. was administered by Ramírez Rahman RN; for sedation; 12::08 A 5 Fr sheath was inserted into the Right Femoral artery 12:31:19 Patient Height : 67 cm 12:31:22 Patient Weight : 170 kg 12:32:02 A Cordis 5Fr Pigtail Catheter (MP) was advanced over the wire and used for Procedure. 12:32:06 LV gram done using MATHIS 12:32:09 Injector settings: Ml/sec: 10, Volume: 20, 12:32:47 EF : 50 % 12:32:51 A Cordis 5Fr JL 4.0 Catheter (MP) was advanced over the wire and used for Procedure. 12:33:57 Catheter removed. unable to cannulate vessel. 12:34:03 Fentanyl 50 mcg I.V. was administered by Ramírez Rahman RN; for sedation; 12:34:06 A Diagnostic Infinity 5Fr JL 3.5 catheter was advanced over the wire and used for Procedure. 12:34:24 LCA angiography performed. 12:35:45 Catheter removed. 12:35:49 A Cordis 5Fr 3DRC Catheter (MP) was advanced over the wire and used for Procedure. 12:35:56 RCA angiography performed. 12:36:00 Julien iNeedisper J 300cm 0.014 guide wire opened to sterile field. 12:36:00 Dsg.nr BasixCompak Inflation Kit opened to sterile field. 12:36:06 Medtronic Launcher 6Fr EBU 3.0 guide catheter opened to sterile field. 12:36:28 Terumo 6Fr [place] Sheath opened to sterile field. 12:36:32 Catheter removed. 12:36:42 Sheath upsized to a 6 Fr Short. 12:36:50 6 Fr ebu 3 guide catheter was inserted over the wire 12:37:06 Heparin Bolus 4000 units I.V. was administered by Ramírez Rahman RN; for anticoagulation; 12:38:21 ZenDocisper wire advanced. 12:38:23 Wire advanced across lesion. 12:38:57 Inflation Number: 1 A Medtronic Resolute 3.0 X 9 stent was prepped and advanced across the Prox LAD. The stent was deployed at 21 JUSTIN for 0:10 (min:sec). 12:40:38 Stent catheter was removed intact over wire. 12:41:01 Wire redirected to CX. 12:41:38 Wire advanced across lesion. 12:42:22 Inflation number: 1 A Euphora 1.5 x 15 Balloon was prepped and advanced across the Prox CX, then inflated to 21 JUSTIN for 0:10 (min:sec). 12:42:35 Inflation number: 2 The Euphora 1.5 x 15 Balloon was reinflated across the Prox CX, to 21 JUSTIN for 0:00 (min:sec). 12:43:04 Wire removed. 12:43:04 Balloon removed over the wire. 12:43:05 Guide catheter removed. 12:43:16 Cordis 6Fr Exoseal opened to sterile field. 12:43:27 Sheath removed intact; hemostasis achieved with Exoseal to the Right Femoral artery. 12:43:29 Procedure ended.(Physican Out) 12:46:30 Fluoroscopy time 05.30 minutes. 12:46:34 Fluoroscopy dose: 751 mGy 12:46:34 Flurop Dose total: 751 12:46:37 Contrast amount:Isovue 300 98ml. 12:47:36 Sharps counted by scrub and verified by R.N. 12:47:42 Insertion/operative site no bleeding no hematoma. 12:47:44 Post-op/insertion site Right Femoral artery dressed using a 4 x 4 and Tegaderm. 12:47:48 Post right femoral artery:stable, soft, clean and dry 12:47:50 Post Procedure Pulses reassessed and unchanged 12:47:56 Post-procedure physical assessment completed. ASA score P 2 - A patient with mild systemic disease as per Ted Justice MD. 12:47:58 Post procedure rhythm: unchanged. 12:48:01 Estimated blood loss: 10 ml 12:48:03 Post procedure instruction explained to patient.Patient verbalizes understanding. 12:48:04 Patient needs reinforcement of post procedure teaching. 12:48:37 Procedure type changed to Cath procedure, Diagnostic procedure, LHC, LHC w/Coronaries, PCI procedure, Coronary Stent Initial, PTCA Initial, Miscellaneous Procedures, Moderate Sedation up to 30 minutes 12:51:13 Procedure and supply charges have been captured, reviewed, submitted and are correct. 12:51:15 Procedure Complication : No complications 12:51:18 See physician's report for complete and final results. 12:51:18 Vital chart was stopped 12:51:20 Report given to PCU. 12:51:23 Patient transfered to PCU with Stretcher. 12:51:25 Full Disclosure recording stopped 12:51:25 Procedure ended. 12:51:54 End room use (Document Last) Intervention Summary Intervention Notes Time ActionType Lesion and Equipment Action# Pressure Duration Attributes Used 12:38:57 Place stent Prox LAD Medtronic 1 21 00:10 Resolute 3.0 X 9 stent 12:42:22 Inflate Prox CX Euphora 1 21 00:10 balloon 1.5 x 15 Balloon 12:42:35 Reinflate Prox CX Euphora 2 21 00:00 balloon 1.5 x 15 Balloon Device Usage Item Name Manufacture Quantity Catalog Hospital Part Current Minimal Lot# / Number Charge Number Stock Stock Serial# Code Tegaderm 4 3M 1 [id number] [id number] 430857 5 x 4 Acist Acist 1 64187 013766 168729 259998 5 Manifold Medical Systems Inc Acist Hand Acist 1 82852 590321 786251 087347 5 Control Medical Systems Inc Acist Acist 1 51320 032988 831039 199457 20 Syringe Medical Systems Inc Bag Microtek 1 2002S 2760662 77120 253348 5 DecArchitectural Daily Medical Inc. Medline Cardinal 1 [id number] 131336 53336 804402 5 Cath Pack Health Terumo 5Fr Terumo 1 [id number] 960138 288745 306259 [address] [place] [address] Buck St Buck 1 335565 986577 763068 744640 30 260cm J .035 wire Diagnostic Cardinal 1 [id number] 882816 95904 483746 30 Infinity Health 5Fr Multipack catheter Cordis 5Fr Cardinal 1 361251 5 Pigtail Health Catheter (MP) Cordis 5Fr Cardinal 1 553688 5 JL 4.0 Health Catheter (MP) Diagnostic Cardinal 1 [id number] 545360 481632 295076 5 Infinity Health 5Fr JL 3.5 catheter Cordis 5Fr Cardinal 1 613654 5 3DRC Health Catheter (MP) Medtronic Medtronic 1 [id number] 388381 08972 317860 0 Launcher 6Fr EBU 3.0 guide catheter Terumo 6Fr Terumo 1 HDS405 416795 528200 238766 40 [place] Sheath Medtronic Medtronic 1 [id number] 208006 930844 8 [id number] Resolute 3.0 X 9 stent Euphora 1.5 Medtronic 1 [id number] 898296 605289 715574 5 [id number] x 15 Balloon Cordis 6Fr Cardinal 1 EX600 065661 522223 197297 10 Advanced Field SolutionsLifeBrite [facility] Merit 1 ID2970 926380 127342 215474 15 BasixPropertybasek Medical Inflation Kit Julien Julien 1 [id number] 418418 891965 591926 5 Whisper J Vascular 300cm 0.014 guide wire Signature Audit [place] Stage Time Signature Unsigned Intra-Procedure 07/20/2016 Lan Thomson 12:53:08 PM RT(R) Signatures Monitor : Lan Thomson RT Signature : Date : Time : [address] [place] [address]
[2016-07-19 19:01] LABS: BASOPHILS 0.5 % (0-2); EOSINOPHILS 2.8 % (0-7); HEMATOCRIT 32.6 % (42.0-54.0); HEMOGLOBIN 10.7 g/dL (13.5-17.5); IMMATURE GRANULOCYTES 0.1 % (0-5); MCH 30.5 pg (26.0-34.0); MCHC 32.8 g/dL (31.0-37.0); MCV 92.9 fL (80.0-100.0); MEAN PLATELET VOLUME 10.7 fL (7.4-10.4); MONOCYTES 9.3 % (2-11); NEUTROPHILS 61.3 % (40-80); PLATELET COUNT 468 10x3/uL (130-400); RBC 3.51 10x6/uL (4.20-6.10); RDW 15.8 % (11.5-14.5); WBC 8.2 10x3/uL (4.8-10.8)
[2016-07-19 19:10] LABS: ALBUMIN 3.8 g/dL (3.4-5.0); ALKALINE PHOSPHATASE 94 U/L (46-116); ALT (SGPT) 16 U/L (10-68); BILIRUBIN - TOTAL 0.17 mg/dL (0.2-1.3); CALC OSMOLALITY 276 mosm/kg (275-300); CALCIUM 9.1 mg/dL (8.5-10.1); CARBON DIOXIDE 24.8 mmol/L (21.0-32.0); CHLORIDE - SERUM 104 mmol/L (98-107); CREATININE - SERUM 0.8 mg/dL (0.6-1.3); GLUCOSE 91 mg/dL (74-106); POTASSIUM - SERUM 4.5 mmol/L (3.5-5.1); PROTEIN - SERUM 8.5 g/dL (6.4-8.2); SODIUM 140 mmol/L (136-145); UREA NITROGEN 8 mg/dL (7-18); eGFR NON AFRICAN AMERICAN > 90 mL/min (90-120)
[2016-07-19 19:15] LABS: CREATINE KINASE 144 UL (21-232); TROPONIN-I 0.021 ng/mL (0.000-0.060)
[2016-07-19 21:38] VITALS: Ht 170.2 cm; Wt 77.3 kg
--- NOTE | 2016-07-19 21:43 | NUR ---
PT C/O CHEST PAIN, RATES @ 9/10 ON PAIN SCALE. REPORTS IT RADIATES TO HIS LEFT ARM AND CHEST. DR NAVARRETE PAGED FOR FURTHER ORDERS. RETURNS CALL, ORDERS MORPHINE 2-4 MG Q1H PRN CHEST PAIN. PT UPDATED ON POC AND VERBALIZED UNDERSTANDING.
[2016-07-20] VITALS (7 sets, daily range): BP systolic 92–153; BP diastolic 34–72
[2016-07-20 01:24] LABS: TROPONIN-I 0.03 ng/mL (0.000-0.060)
[2016-07-20 07:00] LABS: CREATINE KINASE 90 UL (21-232); TROPONIN-I < 0.017 ng/mL (0.000-0.060)
--- NOTE | 2016-07-20 07:10 | NUR ---
RECEIVED PT IN BED AAOX4 RESP UNLABORED C/O CHEST PAIN 12/07 EXPLAIN WOULD CHECK ON MEDICATION
[2016-07-20 10:52] LABS: BASOPHILS 0.7 % (0-2); EOSINOPHILS 3.8 % (0-7); HEMATOCRIT 34.7 % (42.0-54.0); IMMATURE GRANULOCYTES 0.2 % (0-5); LYMPHOCYTES 32.8 % (15-50); MCH 31.2 pg (26.0-34.0); MCHC 31.7 g/dL (31.0-37.0); MEAN PLATELET VOLUME 11.8 fL (7.4-10.4); MONOCYTES 11.5 % (2-11); RBC 3.53 10x6/uL (4.20-6.10)
[2016-07-20 10:53] LABS: MCV 98.3 fL (80.0-100.0); PLATELET COUNT 314 10x3/uL (130-400); WBC 5.8 10x3/uL (4.8-10.8)
[2016-07-20 11:02] LABS: CALC OSMOLALITY 276 mosm/kg (275-300); CALCIUM 9.7 mg/dL (8.5-10.1); CHLORIDE - SERUM 104 mmol/L (98-107); CREATININE - SERUM 0.9 mg/dL (0.6-1.3); GLUCOSE 87 mg/dL (74-106); SODIUM 139 mmol/L (136-145); UREA NITROGEN 12 mg/dL (7-18); eGFR NON AFRICAN AMERICAN 89 mL/min (90-120)
--- NOTE | 2016-07-20 11:55 | NUR ---
PT TO AIRPORT RAMP SUPERVISOR VIA BED IN STABLE CONDITION
--- NOTE | 2016-07-20 12:51 | HP ---
PATIENT: MATT ROSA MEDICAL RECORD: [id number] ACCOUNT: [id number] LOCATION:[address] : 47 ADMISSION DATE: 07/19/16 HISTORY AND PHYSICAL EXAMINATION ADMITTING DIAGNOSES: 1. Unstable angina. 2. Coronary artery disease. 3. Status post multivessel percutaneous transluminal coronary angioplasty stent. 4. Chronic obstructive pulmonary disease. 5. Smoking history. 6. Hypertension. 7. Diabetes, non-insulin dependent. 8. Hyperlipidemia. HISTORY OF PRESENT ILLNESS: Mr. Rosa presents with anginal symptomatology. For the past 1 week, he has been having increasing episodes of chest pain and chest discomfort; last cardiac intervention, February 2016. His angina is just like that of his previous angina and in fact worse. PHYSICAL EXAMINATION: GENERAL APPEARANCE: Well-nourished, well-developed, appears stated age. Level of distress, comfortable. PSYCHIATRIC: Mental status, alert, normal affect. Orientation, oriented to time, place and person. EYES: Lids and conjunctiva, noninjected. No discharge, no pallor. ENT: Lips, teeth, gums, normal dentition. Oropharynx, no cyanosis, no pallor. NECK: Carotid arteries, bilateral normal upstroke, no bruits, no thrills. JUGULAR VEINS: No jugular venous pressure or distention. CERVICAL LYMPH NODES: Nontender, nonenlarged. THYROID: Not enlarged. Nontender. No nodules. LUNGS: Respiratory effort, unlabored. CHEST: Normal curvature. No thoracic deformity. No chest wall tenderness. Percussion, resonant. Auscultation, clear. No wheezes, no rales, no rhonchi. CARDIOVASCULAR: Precordial exam, nondisplaced. No heaves or pericardial thrills. Rate and rhythm, regular. Heart sounds, normal S1, normal S2. No S3, no gallop, no rub. Systolic murmur, not heard. Diastolic murmur, not heard. EXTREMITIES: No cyanosis, no edema. Peripheral pulses, full and equal in all extremities, except as noted. No bruits appreciated. ABDOMEN: Soft, nondistended. Normal aorta. No bruit. Nontender. No masses. Liver, nontender, no hepatomegaly. Spleen, nontender, no splenomegaly. MUSCULOSKELETAL: No joint tenderness. No joint swelling. No erythema. NEUROLOGICAL: Normal gait, normal strength, normal tone. SKIN: Warm and dry. REVIEW OF SYSTEMS: The patient reports easy bruising but reports no swollen glands. The patient reports no fever, no night sweats, no significant weight gain, no significant weight loss. No significant exercise tolerance. The patient reports no dry eyes, no irritation, no vision change. Patient reports no difficulty hearing and no ear pain. Patient reports no frequent nose bleeds or nose and sinus problems. Patient reports on arm pain on exertion. No shortness of breath while lying down. No history of heart murmur. Patient reports no cough, no wheezing or coughing up blood. Patient reports no abdominal pain, no vomiting. Normal appetite. No diarrhea and not vomiting HISTORY AND PHYSICAL [id number] SAMY,MATT RAY blood. No nausea and no constipation. Patient reports no incontinence. No difficulty urinating. No hematuria. No increased frequency. Patient reports no muscle aches. No weakness, no arthralgias, no back pain. No swelling of the extremities. Patient reports no abnormal mole, no jaundice, no rashes. Reports no loss of consciousness. No weakness and no numbness. No seizures, dizziness, or headaches. The patient reports no depression, no sleep disturbance, feeling safe in a relationship and no alcohol abuse. Patient reports on fatigue. Reports no runny nose or sinus pressure. No itching, no hives, and no frequent sneezing. OVERALL IMPRESSIONS: Unstable anginal symptomatology. EKG is with no acute ST-T abnormalities. He continues to have episodes of pain. Most likely, he does have recurrent hemodynamically significant coronary artery disease. We will proceed with repeat coronary angiography. Further care depends upon findings of the angiography. TRANSINT:[id number] Voice Confirmation ID: [id number] DOCUMENT ID: [id number] CHING NAVARRETE MD at 1251 CC: [id number] DICTATION DATE: 07/20/16 1020 PARISH WORKER: 07/20/16 1042 ADM IN [place] [id number] [place] [address]
--- NOTE | 2016-07-20 13:00 | NUR ---
PT BACK TO ROOM FROM STORE ASSOCIATE VIA BED IN STABLE CONDITION RT BALDO BLANCHARD C/D/I VSS PT RESTING QUIETLY NAD NOTED
--- NOTE | 2016-07-20 19:00 | NUR ---
INITIAL ROUNDS MADE. PT SITTING UP IN BED WATCHING TV. DENIES NEEDS OR C/O AT THIS TIME. RIGHT GROIN STABLE. VSS. CALL LIGHT IN REACH. WILL CONT TO MONITOR.
[2016-07-21 05:32] VITALS: BP 123/60
--- NOTE | 2016-07-21 05:53 | NUR ---
RESTING WELL WITH EYES CLOSED, NO DISTRESS NOTED. CALL LIGHT IN REACH. WILL CONT TO MONITOR.
[2016-07-21 08:06] VITALS: BP 118/59
--- NOTE | 2016-07-21 09:40 | NUR ---
IV AND TELEMETRY DCD. DC PLANS GIVEN. UNDERSTANDING VOICED.
--- NOTE | 2016-07-21 10:50 | NUR ---
LEAVING HOSP WITH SISTER INLAW. ESCORTED TO CAR BY W/C.
--- NOTE | 2016-07-23 08:06 | OP ---
PATIENT NAME: MATT PABLO MEDICAL RECORD: [id number] :47 LOCATION:D.M2 D.2114 ADMISSION DATE:07/19/16 SURGEON: CHING NAVARRETE MD DATE OF OPERATION: 07/20/2016 PROCEDURES: 1. Fajardo interrogation. 2. Percutaneous transluminal coronary angioplasty stent left anterior descending. 3. Percutaneous transluminal coronary angioplasty left circumflex, keep until tomorrow morning. 4. Left ventriculogram. 5. Left heart catheterization. 6. Selective coronary angiography. INDICATION: Angina, coronary artery disease, syncope. PROCEDURE: After informed consent was obtained and after detailed explanation of risks, benefits as well as alternative therapies, the patient elected to proceed with angiogram and angioplasty. The right femoral area was prepped and draped in normal sterile fashion. The right femoral artery was cannulated via modified Seldinger technique with placement of 6-[place] sheath. All catheters exchanged through this sheath. FINDINGS: Erick device was interrogated. There were no dysrhythmias or explained syncope. Left ventriculogram was performed in standard 30-degree MATHIS view, reveals preserved cardiac wall motion, ejection fraction 50%. SELECTIVE CORONARY ANGIOGRAPHY: 1. Left main showed no significant angiographic disease. 2. Left anterior descending has an 80% to 90% hazy stenosis proximally. 3. Left circumflex is totally occluded. This is unchanged from previous angiography. 4. Right coronary has moderate irregularities, but no flow-limiting stenosis. PTCA STENT OF THE LAD: The stent used was a 3.0 x 9 mm Resolute stent taken to 21 atmospheres. This caused plaque shift into the circumflex. The circumflex was addressed with a 1.5 balloon. Result was 0% residual throughout. OVERALL IMPRESSION: Successful percutaneous transluminal coronary angioplasty stent of the left anterior descending going from 90% hazy initial stenosis to 0% residual stenosis. TRANSINT:[id number] Voice Confirmation ID: [id number] DOCUMENT ID: [id number] OPERATIVE REPORT [id number] MATT PABLO CHING NAVARRETE MD at 0806 CC: [id number] DICTATION DATE: 07/20/16 1253 SR. SOCIAL MEDIA & MOBILE MANAGER: 07/20/16 1648 DIS IN 07/21/16 [place] [address]
== END 2016-07-21 10:51 | disposition home or self-care (01) ==
LOC: D.ER 16:53 → OBSVTIME 20:19 → D.M2 20:19
PROVIDERS: Family Medicine; ADMIT Internal Medicine Interventional Cardiology
DX: I25.110 Atherosclerotic heart disease of native coronary artery with unstable angina pectoris (principal); E11.9 Type 2 diabetes mellitus without complications; E78.5 Hyperlipidemia, unspecified; I10 Essential (primary) hypertension; Z72.0 Tobacco use
CPT/HCPCS: 92920; 93458; C9600

== ENCOUNTER 2016-07-27 11:04 | Inpatient (IN) | payer MEDICARE ==
[2016-07-27] VITALS (27 sets, daily range): BP systolic 90–124; BP diastolic 34–54; BMI 26.7
[~2016-07-27] VITALS: Ht 170.2 cm; Wt 77.1 kg
--- NOTE | ~2016-07-27 | HEMODYNAMI ---
PATIENT:MATT PABLO MEDICAL RECORD: [id number] : 47 LOCATION:[facility] D.CV01 ADMISSION DATE: 07/27/16 Generatedon:07/27/201613:38 Patient name: MATT PABLO Patient #: [id number] SSN: [id number] : 1945 Date of study: 07/27/2016 Page: Of Hemodynamic Procedure Report Patient Data Patient Demographics Procedure consent was obtained First Name: MATT Gender: Male Last Name: SAMY : 1945 Middle Initial: RAY Age: 71 year(s) Patient #: [id number] Race: SSN: [id number] Additional ID: [id number] Contact details [address]: [address] [place] [address] State: [place] City: [place] Zip code: [address] Past Medical History History of disease Date Diagnosis Comments CAD Allergies Allergen Reaction Date Comments Reported Other 05/24/2014 oxycodone allergy Other 05/24/2014 propoxyphene allergy Other 05/24/2014 napsylate allergy Other 05/24/2014 tramadol allergy Other 03/19/2016 Oxycodone, HCL, allergy Tramadol HCL, Darvocet Other 07/20/2016 propoxyphhene, allergy napsylate,tramadol,HCL Admission Admission Data Admission Date: 07/27/2016 Admission Time: 11:42 Room #: D.CV01 Procedure Procedure Types Cath Procedure Diagnostic Procedure LHC Coronaries only Intra-Aortic Balloon Pump Miscellaneous Procedures Moderate Sedation up to 45 minutes Procedure Description Procedure Date Procedure Date: 07/27/2016 Procedure Start Time: 11:56 Procedure End Time: 13:15 Procedure Staff Name Function Remberto Tabor MD Performing Physician Viktoria Kapoor RT Scrub Jose Shaw RN Nurse Mana Lyman RT Monitor Procedure Data Cath Procedure Fluoroscopy Diagnostic fluoroscopy Total fluoroscopy Time: time: 16.7 min 16.7 min Diagnostic fluoroscopy Total fluoroscopy dose: dose: 2903 mGy 2903 mGy Contrast Material Contrast Material Type Amount (ml) Isovue 300 157 Entry Location Entry Primary Successful Side Size Upsize Upsize Entry Closure Succes sful Closure Location (Fr) 1 (Fr) 2 (Fr) Remarks Device Remarks Femoral Right 6 Fr Exoseal artery Short Femoral Left 7 Fr artery Short Estimated blood loss: 10 ml Diagnostic catheters Device Type Used For End Catheter Placement Cordis 5Fr JL 4.0 Procedure Catheter (MP) Cordis 5Fr 3DRC Catheter Procedure (MP) Procedure Complications No complications Procedure Medications Medication Administration Route Dosage Oxygen NC 2 l/min Lidocaine 2% added to field 20 Heparin Flush Bag added to field 2 bags (1000units/500ml NS) 0.9% NaCl I.V. 100 ml/hr Versed I.V. 1 mg Fentanyl I.V. 50 mcg Heparin Bolus I.V. 7500 units Cardene I.C. 300 mcg Integrilin (Bolus I.V. 6.8 ml 2mg/ml) Dopamine I.V. drip 5 mcg/kg/min (400mg/250ml D5W) Zofran I.V. 4 mg Fentanyl I.V. 50 mcg Dopamine I.V. drip 10 mcg/kg/min (400mg/250ml D5W) Nitroglycerin IC/IA I.C. 100 mcg Dopamine I.V. drip 5 mcg/kg/min (400mg/250ml D5W) Heparin Drip I.V. drip 500 units/hr (28637vrqpk/250 D5W) Brilinta P.O. 180 mg Fentanyl I.V. 50 mcg Versed I.V. 1 mg Fentanyl I.V. 50 mcg Hemodynamics Rest HGB: 11 (g/dl) Heart Rate: 116 (bpm) Snapshots Pre Cath Intra NCS Post Cath Vital Signs Time Heart Resp SPO2 etCO2 [id number] NIBP (mmHg) Rhythm Pain Status S edation Rate (ipm) (%) (mmHg) (mmHg) Level (bpm) 11:47:10 115 15 91 0 0 No Cuff NSR w/ ST 9 (11) , 1 0(A) Elevation Excruciating unbearable 11:51:40 114 17 95 0 0 145/90(113) NSR w/ ST 9 (11) , 1 0(A) Elevation Excruciating unbearable 11:55:52 116 22 94 0 0 144/90(113) [place] [id number] () , 1 0(A) Elevation Excruciating unbearable 12:00:04 120 23 93 0 0 135/83(105) [place] [id number] () , 1 0(A) Elevation Excruciating unbearable 12:04:14 121 24 94 0 0 132/85(105) [place] [id number] () , 1 0(A) Elevation Excruciating unbearable 12:08:22 114 23 95 0 0 109/73(86) [place] [id number] () , 1 0(A) Elevation Excruciating unbearable 12:12:28 102 19 93 0 0 83/50(61) [place] [id number] () , 1 0(A) Elevation Excruciating unbearable 12:16:35 72 23 92 0 0 57/35(43) [place] [id number] () , 1 0(A) Elevation Excruciating unbearable 12:20:33 75 24 94 0 0 55/36(47) [place] [id number] () , 1 0(A) Elevation Excruciating unbearable 12:25:05 112 19 94 0 0 79/50(68) [place] [id number] () , 1 0(A) Elevation Excruciating unbearable 12:29:05 126 19 93 0 0 92/57(66) [place] [id number] () , 1 0(A) Elevation Excruciating unbearable 12:33:11 127 17 94 0 0 93/55(66) [place] [address] () , 1 0(A) Elevation Excruciating unbearable 12:37:17 120 20 94 0 0 77/53(65) [place] [address] () , 1 0(A) Elevation Excruciating unbearable 12:41:20 120 46 90 0 0 74/46(61) [place] [address] () , 1 0(A) Elevation Excruciating unbearable 12:45:22 115 25 93 0 0 69/47(56) [place] [id number] () , 1 0(A) Elevation Excruciating unbearable 12:49:24 120 23 93 0 0 77/41(64) NSR w/ ST 9 (11) , 1 0(A) Elevation Excruciating unbearable 12:53:25 128 25 91 0 0 78/52(67) NSR w/ ST 9 (11) , 1 0(A) Elevation Excruciating unbearable 12:57:27 135 22 92 0 0 79/60(65) NSR w/ ST 9 (11) , 1 0(A) Elevation Excruciating unbearable 13:01:27 116 19 93 0 0 88/57(72) NSR w/ ST 9 (11) , 1 0(A) Elevation Excruciating unbearable 13:05:33 129 23 93 0 0 75/51(70) NSR w/ ST 9 (11) , 1 0(A) Elevation Excruciating unbearable 13:10:29 125 40 93 0 0 Disturbed NSR w/ ST 9 (11) , 1 0(A) Elevation Excruciating unbearable 13:16:53 124 21 92 0 0 78/52(0) NSR w/ ST 9 (11) , 1 0(A) Elevation Excruciating unbearable Medications Time Medication Route Dose Verified Delivered Reason N otes Effectiveness by by 11:32:06 Oxygen NC 2 l/min Remberto Buffie used for Leander Shaw RN procedure 11:35:15 Lidocaine 2% added 20ml vial Remberto Buffie used for to Leander Shaw RN procedure field 11:35:35 Heparin Flush added 2 bags Remberto Buffie used for Bag to Leander Shaw RN procedure (1000units/500ml field NS) 11:35:43 0.9% NaCl I.V. 100ml/hr Remberto Buffie Per physician Leander Shaw RN 11:55:48 Versed I.V. 1 mg Remberto Buffie for sedation Leander Shaw RN 11:55:56 Fentanyl I.V. 50 mcg Remberto Buffie for sedation Leander Shaw RN 11:59:12 Fentanyl I.V. 50 mcg Remberto Buffie for sedation Leander Shaw RN 11:59:16 Versed I.V. 1 mg Remberto Buffie for sedation Leander Shaw RN 12:02:59 Heparin Bolus I.V. 7500 units Remberto Buffie for v erified Leander Shaw RN anticoagulation with dr tabor 12:10:12 Cardene I.C. 300 mcg Remberto Buffie Per physician Leander Shaw RN 12:16:10 Integrilin I.V. 6.8 ml Remberto Buffie for w asted (Bolus 2mg/ml) Leander Shaw RN antiplatelet 3.2 ml therapy of vial 12:19:57 Dopamine I.V. 5 Remberto Buffie Per physician (400mg/250ml drip mcg/kg/min Leander Shaw RN D5W) 12:23:44 Zofran I.V. 4 mg Remberto Buffie for arrhythmia Leander Shaw RN 12:29:56 Fentanyl I.V. 50 mcg Remberto Buffie for sedation Leander Shaw RN 12:38:52 Fentanyl I.V. 50 mcg Remberto Buffie for sedation Leander Shaw RN 12:42:08 Dopamine I.V. 10 Remberto Buffie Per physician (400mg/250ml drip mcg/kg/min Leander Shaw RN D5W) 12:52:30 Nitroglycerin I.C. 100 mcg Remberto Remberto Per physician IC/IA Leander Tabor MD 12:54:07 Dopamine I.V. 5 Remberto Remberto Per physician (400mg/250ml drip mcg/kg/min Leander Tabor MD D5W) 13:22:32 Heparin Drip I.V. 500 Remberto Buffie Per physician v erified (44544grvdw/250 drip units/hr Leander Shaw RN with dr Degroot) leander 13:22:59 Brilinta P.O. 180 mg Remberto Buffie for Leander Shaw RN antiplatelet therapy Procedure Log Time Note 11:30:26 Informed consent obtained and on chart 11:30:30 Diagnostic Cath Status : Elective 11:30:50 Jose Shaw RN sent for patient. Start room use. 11:30:51 Time tracking: Regular hours 11:30:55 Plan of Care:Hemodynamics will remain stable., Cardiac rhythm will remain stable., Comfort level will be maintained., Respiratory function will remain adequate., Patient/ family verbilizes understanding of procedure., Procedure tolerated without complication., Recovers from procedure without complications.. 11:32:06 Oxygen 2 l/min NC was administered by Buffie Shaw RN; used for procedure; 11:32:55 Use device set Femoral PCI 11:32:56 Acist Syringe opened to sterile field. 11:32:56 Acist Hand Control opened to sterile field. 11:32:57 Bag Decanter opened to sterile field. 11:32:57 Medline Cath Pack opened to sterile field. 11:32:57 Terumo 6Fr [place] Sheath opened to sterile field. 11:32:58 St Buck 260cm J .035 wire opened to sterile field. 11:32:58 Merit BasixCompak Inflation Kit opened to sterile field. 11:32:58 Acist Manifold opened to sterile field. 11:32:59 Tegaderm 4 x 4 opened to sterile field. 11:35:15 Lidocaine 2% 20ml vial added to field was administered by Jose Shaw RN; used for procedure; 11:35:35 Heparin Flush Bag (1000units/500ml NS) 2 bags added to field was administered by Jose Shaw RN; used for procedure; 11:35:43 0.9% NaCl 100ml/hr I.V. was administered by Jose Shaw RN; Per physician; 11:46:16 Patient received from ED to CCL 1 Alert and oriented. Tansferred to table in Supine position. 11:46:17 Warm blankets applied, and bria hugger turned on for patient comfort. 11:46:18 Correct patient and procedure confirmed by team. 11:46:19 ECG and BP/O2 sat monitors applied to patient. 11:46:19 Vital chart was started 11:46:20 Baseline sample Acquired. 11:46:22 Full Disclosure recording started 11:46:27 H&P Date Dictated: 07/27/2016 New H&P dictated by physician.. 11:46:28 Pre-procedure instructions explained to patient. 11:46:28 Pre-op teaching completed and patient verbalized understanding. 11:46:30 Family in waiting room. 11:46:31 Patient NPO since Midnight. 11:46:36 Is the patient allergic to Iodine/contrast media? No. 11:46:37 Was the patient premedicated? No 11:52:20 Baseline sample Acquired. 11:53:05 IV patent on arrival in right forearm with 0.9% NaCl at O. 11:53:19 Lab results completed and on chart. 11:53:24 Right groin area was prepped with chlora-prep and draped in sterile fashion 11:53:26 Sharps counted by scrub and verified by R.N. 11:53:28 Physician arrived 11:53:29 --------ALL STOP TIME OUT------ 11:53:37 Final Timeout: patient, procedure, and site verified with staff and physician. All members of the team are in agreement. 11:53:40 Right groin site verified by team. 11:53:45 Sedation plan: IV Moderate Sedation Versed, Fentanyl 11:54:47 Plan of Care:Hemodynamics will remain stable., Cardiac rhythm will remain stable., Comfort level will be maintained., Respiratory function will remain adequate., Patient/ family verbilizes understanding of procedure., Procedure tolerated without complication., Recovers from procedure without complications.. 11:55:48 Versed 1 mg I.V. was administered by Jose Shaw RN; for sedation; 11:55:56 Fentanyl 50 mcg I.V. was administered by Jose Shaw RN; for sedation; 11:56:30 Zero performed for pressure channel P1 11:56:50 Procedure started. 11:56:59 Local anesthetic to right femoral artery with Lidocaine 2% by Remberto Tabor MD.INITIAL ACCESS ONLY 11:57:13 A 6 Fr Short sheath was inserted into the Right Femoral artery 11:57:22 J wire advanced. 11:58:40 High Pressure Extension Tubing (Leander) opened to sterile field. 11:59:12 Fentanyl 50 mcg I.V. was administered by Jose Shaw RN; for sedation; 11:59:16 Versed 1 mg I.V. was administered by Jose Shaw RN; for sedation; 11:59:18 Keen IO BasixCompak Inflation Kit opened to sterile field. 12:00:19 Cordis 6FR XBLAD 3.5 guide catheter opened to sterile field. 12:00:36 Julien BMW Medina 2 J-tip 300cm 0.014 guide wir opened to sterile field. 12:00:57 Use device set Multipack Set 12:01:01 Diagnostic Infinity 5Fr Multipack catheter opened to sterile field. 12:01:09 A Cordis 5Fr JL 4.0 Catheter (GRETCHEN) was advanced over the wire and used for Procedure. 12:01:15 LCA angiography performed. 12:01:17 Catheter removed. 12:01:25 A Cordis 5Fr 3DRC Catheter () was advanced over the wire and used for Procedure. 12:01:30 RCA angiography performed. 12:01:35 Catheter removed. 12:02:48 6 Fr xblad 3.5 guide catheter was inserted over the wire 12:02:54 BMW wire advanced. 12:02:58 Wire advanced across lesion. 12:02:59 Heparin Bolus 7500 units I.V. was administered by Jose Shaw RN; for anticoagulation; verified with dr tabor 12:05:28 Inflation number: 1 A Vian Sci Rogers 3.0 X 15 balloon was prepped and advanced across the Prox LAD, then inflated to 12 JUSTIN for 0:21 (min:sec). 12:05:45 Inflation number: 2 The Vian Sci Rogers 3.0 X 15 balloon was reinflated across the Prox LAD, to 12 JUSTIN for 0:10 (min:sec). 12:06:28 multiple inflations through totally occleded LAD 12:10:12 Cardene 300 mcg I.C. was administered by Jose Shaw RN; Per physician; 12:11:45 Balloon removed over the wire. 12:12:51 Inflation number: 3 A Vian Sci Rogers 2.0 X 20 balloon was prepped and advanced across the Prox LAD, then inflated to 10 JUSTIN for 0:17 (min:sec). 12:13:20 Inflation number: 4 The Vian Sci Rogers 2.0 X 20 balloon was reinflated across the Prox LAD, to 10 JUSTIN for 0:15 (min:sec). 12:14:20 Inflation number: 5 The Vian Sci Rogers 2.0 X 20 balloon was reinflated across the Prox LAD, to 10 JUSTIN for 0:11 (min:sec). 12:15:21 Inflation number: 6 The Vian Sci Rogers 2.0 X 20 balloon was reinflated across the Prox LAD, to 10 JUSTIN for 0:13 (min:sec). 12:15:50 multi inflations in LAD 12:16:01 Balloon removed over the wire. 12:16:10 Integrilin (Bolus 2mg/ml) 6.8 ml I.V. was administered by Jose Shaw RN; for antiplatelet therapy; wasted 3.2 ml of vial 12:19:16 Balloon removed over the wire. 12:19:57 Dopamine (400mg/250ml D5W) 5 mcg/kg/min I.V. drip was administered by Jose Shaw RN; Per physician; 12:20:00 Inflation Number: 1 A Medtronic Integrity 2.5 X 26 stent was prepped and advanced across the Mid LAD. The stent was deployed at 10 JUSTIN for 0:00 (min:sec). 12:20:58 Inflation number: 2 The stent balloon was then re-inflated across the Mid LAD to 6 JUSTIN for 0:13 (min:sec). 12:23:44 Zofran 4 mg I.V. was administered by Jose Shaw RN; for arrhythmia; 12:25:04 Local anesthetic to left brachial artery with Lidocaine 2% by Remberto Tabor MD.ADDITIONAL ACCESS 12:26:45 A 7 Fr Short sheath was inserted into the Left Femoral artery 12:29:56 Fentanyl 50 mcg I.V. was administered by Jose Shaw RN; for sedation; 12:38:52 Fentanyl 50 mcg I.V. was administered by Jose Shaw RN; for sedation; 12:42:08 Dopamine (400mg/250ml D5W) 10 mcg/kg/min I.V. drip was administered by Jose Shaw RN; Per physician; 12:52:30 Nitroglycerin IC/IA 100 mcg I.C. was administered by Remberto Tabor MD; Per physician; 12:53:59 Datascope IABP 40cm balloon catheter opened to sterile field. 12:54:05 Balloon removed over the wire. 12:54:07 Dopamine (400mg/250ml D5W) 5 mcg/kg/min I.V. drip was administered by Remberto Tabor MD; Per physician; 12:54:26 40cc IABP inserted into the LFA . 12:54:34 Augmentation: 1:1 per physician. 12:54:38 Trigger: Pressure 12:55:08 Augmenter BP: 78/52 12:56:50 Terumo 7Fr [place] Sheath opened to sterile field. 13:04:32 2.0 Silk 685H opened to sterile field. 13:04:32 2.0 Silk 685H opened to sterile field. 13:04:45 Cordis 6Fr Exoseal opened to sterile field. 13:04:45 Tegaderm 4 x 4 opened to sterile field. 13:04:46 Tegaderm 4 x 4 opened to sterile field. 13:04:46 Tegaderm 4 x 4 opened to sterile field. 13:06:09 Wire removed. 13:06:10 Guide catheter removed. 13:06:35 Sheath removed intact; hemostasis achieved with Exoseal to the Right Femoral artery. 13:06:39 Procedure ended.(Physican Out) 13:06:56 Fluoroscopy time 16.70 minutes. 13:07:09 Fluoroscopy dose: 2903 mGy 13:07:09 Flurop Dose total: 2903 13:07:24 Contrast amount:Isovue 300 157ml. 13:07:27 Sharps counted by scrub and verified by R.N. 13:08:12 Left Femoral 7fr sheath was sutured in with 2-2'0 silks. 13:08:16 Insertion/operative site no bleeding no hematoma. 13:08:25 Post-op/insertion site Right Femoral artery dressed using a 4 x 4 and Tegaderm. 13:08:31 Post right femoral artery:stable 13:09:06 Post-procedure physical assessment completed. ASA score P 3 - A patient with severe systemic disease as per Remberto Tabor MD. 13:09:26 Post procedure rhythm: unchanged. 13:10:35 Estimated blood loss: 10 ml 13:10:38 Post procedure instruction explained to patient.Patient verbalizes understanding. 13:11:24 Procedure type changed to Cath procedure, Diagnostic procedure, LHC, Coronaries only, Intra-Aortic Balloon Pump, Miscellaneous Procedures, Moderate Sedation up to 45 minutes 13:11:27 Procedure and supply charges have been captured, reviewed, submitted and are correct. 13:14:40 Procedure Complication : No complications 13:14:44 Vital chart was stopped 13:14:49 See physician's report for complete and final results. 13:14:51 Report given to ICU. 13:14:56 Patient transfered to ICU with Bed. 13:15:00 Procedure ended. 13:15:00 Full Disclosure recording stopped 13:15:03 End room use (Document Last) 13:15:47 Is patient on blood thinner?Yes 13:15:50 ACC The patient was administered the following blood thiners within the last 24 hours: ACCPlavix 13:16:02 Snore? Yes 13:16:17 Sleep apnea? No 13:16:31 Physical assessment completed. ASA score P 3 - A patient with severe systemic disease as per Remberto Tabor MD. 13:22:32 Heparin Drip (93753rrczl/250 D5W) 500 units/hr I.V. drip was administered by Jose Shaw RN; Per physician; verified with dr tabor 13:22:59 Brilinta 180 mg P.O. was administered by Jose Shaw RN; for antiplatelet therapy; Intervention Summary Intervention Notes Time ActionType Lesion and Equipment Action# Pressure Duration Attributes Used 12:05:28 Inflate Prox LAD Vian 1 12 00:21 balloon Sci Rogers 3.0 X 15 balloon 12:05:45 Reinflate Prox LAD Vian 2 12 00:10 balloon Sci Rogers 3.0 X 15 balloon 12:12:51 Inflate Prox LAD Vian 3 10 00:17 balloon Sci Rogers 2.0 X 20 balloon 12:13:20 Reinflate Prox LAD Vian 4 10 00:15 balloon Sci Rogers 2.0 X 20 balloon 12:14:20 Reinflate Prox LAD Vian 5 10 00:11 balloon Sci Rogers 2.0 X 20 balloon 12:15:21 Reinflate Prox LAD Vian 6 10 00:13 balloon Sci Rogers 2.0 X 20 balloon 12:20:00 Place stent Mid LAD Medtronic 1 10 00:00 Integrity 2.5 X 26 stent 12:20:58 Reinflate Mid LAD Medtronic 2 6 00:14 stent Integrity balloon 2.5 X 26 stent Device Usage Item Name Manufacture Quantity Catalog Number Hospital Part Current Min imal Lot# / Charge Number Stock Stock Serial# Code Acist Acist 1 [id number] 689513 012603 621982 20 Syringe Medical Systems Inc Acist Hand Acist 1 13265 567255 122694 817030 5 WISHI Systems Shield [employer] Bag Microtek 1 2002S 073779 46756 982267 5 [employer]. Medline Cardinal 1 [id number] 059092 70525 467101 5 Skim.it Terumo 6Fr Terumo 1 [id number] 874362 881913 783375 [address] Buck 1 973680 814560 751796 202731 30 260cm J .035 wire Merit Merit 2 UP4626 706288 182734 358321 15 FreedomPay Medical Inflation Kit Acist Acist 1 47663 712337 778635 741154 5 Jawbone Systems Inc Tegaderm 4 3M 4 1626W 376866 786044 074378 5 x 4 High Merit 1 [id number] 825756 84724 846548 10 Pressure Medical Extension Tubing (Tabor) Cordis 6FR Cardinal 1 [id number] 860252 863060 123791 10 XBLAD 3.5 Health guide catheter Julien BMW Julien 1 [id number] 360313 616475 352557 5 Medina 2 Vascular J-tip 300cm 0.014 guide wir Diagnostic Cardinal 1 [id number] 743558 19989 316533 30 Infinity Health 5Fr Multipack catheter Cordis 5Fr Cardinal 1 095603 5 JL 4.0 Health Catheter (MP) Cordis 5Fr Cardinal 1 071101 5 3DRC Health Catheter (MP) Vian Sci Vian 1 [id number] 640650 433580 100959 1 [id number] Rogers Scientific 3.0 X 15 balloon Vian Sci Vian 1 [id number] 659243 276523 763843 1 [id number] Rogers Scientific 2.0 X 20 balloon Medtronic Medtronic 1 [id number] 960877 937425 120599 9 [id number] Integrity 2.5 X 26 stent Datascope Datascope 1 [id number] 980677 945829 935435 1 IABP 40cm balloon catheter Terumo 7Fr Terumo 1 [id number] 092294 233803 343947 5 [place] Sheath 2.0 Silk Ethicon 2 685H 461943 89424 152984 5 685H Cordis 6Fr Cardinal 1 EX600 701316 255768 267927 10 [facility] Signature Audit [place] Stage Time Signature Unsigned Intra-Procedure 07/27/2016 Mana Lyman 1:38:16 PM RT(R) Signatures Monitor : Mana Lyman Signature : RT Date : Time : [facility] [address] [place] [address]
[2016-07-27 11:16] LABS: BASOPHILS 0.3 % (0-2); EOSINOPHILS 1.2 % (0-7); HEMATOCRIT 34.1 % (42.0-54.0); HEMOGLOBIN 11.3 g/dL (13.5-17.5); IMMATURE GRANULOCYTES 0.4 % (0-5); LYMPHOCYTES 26.6 % (15-50); MCHC 33.1 g/dL (31.0-37.0); MCV 93.4 fL (80.0-100.0); MEAN PLATELET VOLUME 10.6 fL (7.4-10.4); MONOCYTES 5.2 % (2-11); NEUTROPHILS 66.3 % (40-80); PLATELET COUNT 391 10x3/uL (130-400); RBC 3.65 10x6/uL (4.20-6.10); RDW 15.7 % (11.5-14.5); WBC 9.1 10x3/uL (4.8-10.8)
[2016-07-27 11:30] LABS: ALBUMIN 3.6 g/dL (3.4-5.0); ALKALINE PHOSPHATASE 94 U/L (46-116); ALT (SGPT) 23 U/L (10-68); BILIRUBIN - TOTAL 0.25 mg/dL (0.2-1.3); CALC OSMOLALITY 279 mosm/kg (275-300); CALCIUM 9.5 mg/dL (8.5-10.1); CARBON DIOXIDE 18.8 mmol/L (21.0-32.0); CHLORIDE - SERUM 103 mmol/L (98-107); POTASSIUM - SERUM 3.8 mmol/L (3.5-5.1); PROTEIN - SERUM 8.2 g/dL (6.4-8.2); SODIUM 137 mmol/L (136-145); UREA NITROGEN 12 mg/dL (7-18); eGFR NON AFRICAN AMERICAN 78 mL/min (90-120)
[2016-07-27 11:31] LABS: GLUCOSE 201 mg/dL (74-106)
[2016-07-27 11:43] LABS: CHOL - HDL RATIO 2.7 ratio (2.3-4.9); CHOLESTEROL, TOTAL 129 mg/dL (0-200); CREATINE KINASE 65 UL (21-232); HDL CHOLESTEROL 47 mg/dL (32-96); LDL CHOLESTEROL 58 mg/dL (0-100); LDL-HDL RATIO 1.2 ratio (1.5-3.5); TRIGLYCERIDE 120 mg/dL (30-200); TROPONIN-I 0.038 ng/mL (0.000-0.060)
--- NOTE | 2016-07-27 14:12 | NUR ---
NOTIFIED PT'S BROTHER LEAH PABLO OF PT BEING IN ICU PER PT'S REQUEST. PH# [phone].
--- NOTE | 2016-07-27 15:40 | NUR ---
1400--RECIEVD PER FLOW SHEET-FROM AUT[employer]UB TRAVEL COUNSELOR-O2 PLACED AT 2LNP-R AC INFUSING HEPARIN AT 500 UNITS/H-N/S AT 100ML/H FOR TOTAL VOLUME OF 400ML-L A/C INFUSING DOPAMINE AT 5MCG/KG/MIN-STATES SEVERE MIDSTERNAL CHEST PAIN 12/07-NO RADIATION-IABP L GROIN-SECURE AND SET AT 1:1-ECG -FAINT PP NOTED ST ON MONITOR WITH FREQUENT PVC-AUGMENTED PRESSURE-98 SYS 1430-NOTED AUGMENTED PRESSURE 104-NIBP 104/38-108-DR MIRZA NOTIFIED OF CONT C/O CHEST PAIN AND CURRENT V/S-ORDERS RECIVED AND NOTED-MORPHINE 4MG IVP TITIRATED OVER 10MIN-WITH LITTLE RELIEF-REVIEWED WITH PT BELONGINGS BROUGHT-STATED WALLET-WITH MCGOVERN/WATCH AND CELL PHONE TO BE SENT HOME WITH BROTHER
--- NOTE | 2016-07-27 16:20 | NUR ---
1510-DR CH AT BEDSIDE-NOTED HR 110ST-CONT CHEST PAIN-VERBAL DIRECTION O WEAN DOWN DOPAMINE-DECREASED TO 4.5MCG/KG/MIN 1545-NOTED 10 RUN OF WIDE BUNDLE V-TACH?/REPERFUSION TYPE - 1600REPEAT OF REPERFUSION -70VCZNG-K-CVL MAG LEVELS ORDERED
--- NOTE | 2016-07-27 16:47 | NUR ---
CON,T C/O MIDSTERNAL CHEST PAIN 10/06-MSO4-4MG IVP GIVEN-ATTEMPTED LAB DRAW WITHOUT SUCCESS-
--- NOTE | 2016-07-27 17:10 | NUR ---
DOPAMINE DECREASED TO 4MCG/KG/MIN
[2016-07-27 17:12] LABS: POTASSIUM - SERUM 4.6 mmol/L (3.5-5.1)
--- NOTE | 2016-07-27 19:30 | NUR ---
REPORT RECVD. CARE ASSUMED. INITIAL ASSMNT COMPLETED. SEE FLOWSHEET FOR ALL FINDINGS. AWAKE AND AOX4. MILD ANXIETY NOTED. FLAT AFFECT. REPETITIVE WORRIED STATEMENTS. PERRLA. EQUAL BILATERAL STRENGTHS. RESP EVEN AND UNLABORED. LUNG SOUNDS CTA, DIM IN BASES. SPO2 97% ON 3LPM NC. SR-ST ON THE MONITOR. OCC PACS AND PVC REPERFUSION BEATS. IABP INTACT TO LEFT GROIN AT 1:1. ALL PRESSURES WITHIN PARAMETERS. PULSES PALP X4. PT FLAT IN BED WITH LEFT LEG STRAIGHT. REPORTS CONSTANT CHEST PAIN THAT RADIATES DOWN LEFT ARM. 8/10. PRN MORPHINE IVP PROVIDED ORDERED. ABD SOFT. BSA X4. VOIDING TO URINAL CONCENTRATED UOP. AIR OVERLAY IN USE FOR SKIN INTEGRITY. 1:1 NURSE MONITORING IN PROGRESS. CONT CURRENT POC.
--- NOTE | 2016-07-27 21:20 | NUR ---
NO VISITORS. RESTING WITH EYES CLOSED. ROOM DIM AND FREE OF STIMULI. IABP INTACT. PRESSURES WITHIN PARAMETERS. PULSES PALP. NO DISTRESS SEEN. CONT CURRENT POC.
[2016-07-28] VITALS (41 sets, daily range): BP systolic 93–137; BP diastolic 40–75; Ht 170.2 cm; Wt 77.1 kg
--- NOTE | 2016-07-28 01:11 | NUR ---
RESTING WITH EYES CLOSED. VSS. SR ON THE MONITOR. IABP INTACT AT 1:1. NIBP SYS 107. OCT 108. SPO2 97%. REMAINS IN 1:1 NURSE MONITORING. CONT CURRENT POC.
--- NOTE | 2016-07-28 02:20 | NUR ---
AFTER RESTING SOUNDLY, PT AWAKE AND C/O 9/10 CHEST PAIN. PRN MORPHINE IVP GIVEN. ASSISTED TO REPOSITION CAREFULLY. ICE CHIPS PROVIDED. VSS. SR ON THE MONITOR. IABP INTACT AND ALL WITHIN PARAMETERS. CONT TO MONITOR CLOSELY.
--- NOTE | 2016-07-28 03:15 | NUR ---
REASSESSMENT COMPLETED. SEE FLOWSHEET FOR ALL FINDINGS. AWAKE AND AOX4. MILD ANXIETY NOTED. FLAT AFFECT. REPETITIVE WORRIED STATEMENTS. PERRLA. EQUAL BILATERAL STRENGTHS. RESP EVEN AND UNLABORED. LUNG SOUNDS CTA, DIM IN BASES. SCANT EXP WHEEZES IN UPPER LOBES PER AUSC. SPO2 97% ON 3LPM NC. SR-ST ON THE MONITOR. OCC PACS AND PVC REPERFUSION BEATS. IABP INTACT TO LEFT GROIN AT 1:1. ALL PRESSURES WITHIN PARAMETERS. PULSES PALP X4. PT FLAT IN BED WITH LEFT LEG STRAIGHT. REPORTS CONSTANT CHEST PAIN THAT RADIATES DOWN LEFT ARM. 10. PRN MORPHINE IVP PROVIDING PAIN CONTROL ORDERD. OCC NAUSEA. PRN ZOFRAN EFFECTIVE. ABD SOFT. BSA X4. VOIDING TO URINAL CONCENTRATED UOP. AIR OVERLAY IN USE FOR SKIN INTEGRITY. 1:1 NURSE MONITORING IN PROGRESS. CONT CURRENT POC.
--- NOTE | 2016-07-28 03:45 | NUR ---
PAIN LEVEL INCREASED WITH REPOSITIONING. 12/07. IVP MORPHINE PROVIDED. VSS. IABP INTACT. PRESSURES WITHIN PARAMETERS. CONT TO MONITOR CLOSELY.
[2016-07-28 03:52] LABS: BASOPHILS 0 % (0-2); EOSINOPHILS 0 % (0-7); HEMATOCRIT 33.7 % (42.0-54.0); IMMATURE GRANULOCYTES 0.2 % (0-5); LYMPHOCYTES 5.8 % (15-50); MCH 31.2 pg (26.0-34.0); MCHC 32.6 g/dL (31.0-37.0); MEAN PLATELET VOLUME 10.7 fL (7.4-10.4); MONOCYTES 4.9 % (2-11); NEUTROPHILS 89.1 % (40-80); PLATELET COUNT 378 10x3/uL (130-400); RBC 3.53 10x6/uL (4.20-6.10); RDW 15.7 % (11.5-14.5)
[2016-07-28 03:56] LABS: INR 1.06 (0.85-1.17); MCV 95.5 fL (80.0-100.0); PROTIME 13.6 SECONDS (11.6-15.0); WBC 15.2 10x3/uL (4.8-10.8)
[2016-07-28 03:57] LABS: APTT 95.8 SECONDS (22.8-39.4)
[2016-07-28 04:15] LABS: ANION GAP 16.3 mmol/L (8-16); BILIRUBIN - TOTAL 0.15 mg/dL (0.2-1.3); CARBON DIOXIDE 23.8 mmol/L (21.0-32.0); CREATININE - SERUM 1.7 mg/dL (0.6-1.3); POTASSIUM - SERUM 5.1 mmol/L (3.5-5.1); PROTEIN - SERUM 7.6 g/dL (6.4-8.2)
--- NOTE | 2016-07-28 05:09 | NUR ---
RESTING WITH EYES CLOSED. VSS. SR ON THE MONITOR. AUG PRESSURE 116. IABP INTACT AT 1:1. NO NEEDS VOICED AT THIS TIME. CONT CURRENT POC.
--- NOTE | 2016-07-28 05:35 | NUR ---
PT AWAKE, C/O NAUSEAA AND PAIN. PRN ZOFRAN AND MORPHINE GIVEN. VSS. CONT POC.
--- NOTE | 2016-07-28 07:15 | NUR ---
REPORT RECIEVED FROM CLINICAL TRIALS SYSTEMS ADMINISTRATOR NURSE. PT RESTING IN BED QUIETLY. FULL ASSESSMENT COMPLETE PER FLOWSHEET. WILL CONT 1:1 CARE.
--- NOTE | 2016-07-28 07:49 | NUR ---
MORPHINE ADMINISTERED FOR PAIN. DOCUMENTED IN EMAR.
--- NOTE | 2016-07-28 08:45 | NUR ---
DR. CH AT BEDSIDE. UPDATE PROVIDED TO PT. ORDERED TO TURN DOPAMINE AND AMIODARONE GTT OFF. WOULD MONITOR VS WITHOUT GTT'S AND EVALUATE LATER ON FOR THE REMOVAL OF IABP.
--- NOTE | 2016-07-28 09:15 | NUR ---
FAMILY AT BEDSIDE. UPDATE PROVIDED.
--- NOTE | 2016-07-28 11:00 | NUR ---
REASSESSMENT COMPLETE PER FLOWSHEET. NO CHANGES NOTED AT THIS TIME. BP AND PULSE ARE STABLE AT THIS TIME. WILL CONT TO MONITOR FOR CHANGES.
--- NOTE | 2016-07-28 12:15 | NUR ---
SPOKE WITH DR. CH IN REGARDS TO PT'S CURRENT STATUS. ASKED IF WE COULD WEAN ON IABP TO 1:2. STATED I COULD DO SO AND IF HIS VS SUSTAINED HE WOULD PULL IABP THIS AFTERNOON. WILL CONT TO ASSESS.
--- NOTE | 2016-07-28 15:00 | NUR ---
REASSESSMENT COMPLETE WITH NO CHANGES NOTED. WILL CONT TO ASSESS.
--- NOTE | 2016-07-28 16:00 | NUR ---
DR. CH AT BEDSIDE. STATES HE WANTS TO WAIT TO PULL IABP. STATED HE WOULD REMOVE IABP IN THE MORNING BEFORE CLINIC.
--- NOTE | 2016-07-28 17:55 | NUR ---
PT RESTING QUIETLY. STATES HE HAS SOME RELIEF WITH THE MORPHINE, BUT THE PAIN IS PERSISTENT. LEFT GROIN SITE DRESSING C/D/I. NO SWELLING OR HEMATOMA PRESENT AT THIS TIME. REPORTS SOME TENDERNESS TO AREA WHEN PALPATED.
--- NOTE | 2016-07-28 19:54 | NUR ---
REPORT RECIEVED. ASSESSMENT COMPLETE EPR FLOW SHEET. VSS. PT AWAKE ALERT ORIENTED X3. O2 VIA NC 3L O2 SAT 96% RR 15 NON LABORED RUL RML LESA CLEAR BILAT LOWER LOBES DEMINISHED. HEART S1S2 HR 92 VIA IABP ASSISTED BP 88/50 PT BP 97/56 MAP 74. SITE CDI NO HEMATOMA BRUISING SWELLING OR BLEEDING NOTED AT SITE. R GROIN DRSG NOTED CDI. BILAT PEDAL PULSES FOUND VIA DOPPLER FAINT. PT FEET DUSKY COLD TO TOUCH. BILAT RADIAL PULSES PALP L HAND COOL TO TOUCH. BS ACTIVE X4 DENIES N/V OR PAIN. GIVEN MORPHINE PRN FOR 10/10 PAIN RADIATING FROM CHEST DESCRIBED DULL ACHING CONSTANT. DENIES FURTHER NEEDS. VSS. WILL CONTINUE TO MONITOR.
--- NOTE | 2016-07-28 21:08 | NUR ---
NO NEW FINDINGS. VSS. PT AWAKE WATCHING TV DENIES NEEDS. NO FAMILY AT THIS TIME. WILL CONTINUE TO MONITOR.
--- NOTE | 2016-07-28 23:20 | NUR ---
REASSESSMENT COMPLETE PER FLOW SHEET. VSS. NO NEW CHANGES. WILL CONTINUE TO MONITOR.
[2016-07-29] VITALS (16 sets, daily range): BP systolic 89–120; BP diastolic 45–72
--- NOTE | 2016-07-29 01:15 | NUR ---
PT SLEEPING COMFORTABLY. VSS WILL CONTINUE TO MONITOR
--- NOTE | 2016-07-29 03:15 | NUR ---
REASSESSMENT COMPLETE PER FLOW SHEET. NO NEW CHANGES. VSS. WILL CONTINUE TO MONITOR.
[2016-07-29 07:12] LABS: HEMATOCRIT 31.4 % (42.0-54.0); HEMOGLOBIN 10.3 g/dL (13.5-17.5); MCH 31.2 pg (26.0-34.0); MCHC 32.8 g/dL (31.0-37.0); MCV 95.2 fL (80.0-100.0); MEAN PLATELET VOLUME 10.9 fL (7.4-10.4); PLATELET COUNT 305 10x3/uL (130-400); RDW 16.2 % (11.5-14.5); WBC 24.6 10x3/uL (4.8-10.8)
--- NOTE | 2016-07-29 07:15 | NUR ---
REPORT RECIEVED FROM BAG ADJUSTER NURSE. ASSESSMENT COMPLETE. PT DENIES NEEDS AT THIS TIME. WILL CONT 1:1 CARE.
[2016-07-29 07:36] LABS: ANION GAP 13.7 mmol/L (8-16); BILIRUBIN - TOTAL 0.32 mg/dL (0.2-1.3); CALCIUM 8.6 mg/dL (8.5-10.1); CARBON DIOXIDE 25.7 mmol/L (21.0-32.0); CREATININE - SERUM 1.8 mg/dL (0.6-1.3); POTASSIUM - SERUM 5.4 mmol/L (3.5-5.1); PROTEIN - SERUM 7.1 g/dL (6.4-8.2)
[2016-07-29 07:37] LABS: INR 1.14 (0.85-1.17); PROTIME 14.5 SECONDS (11.6-15.0)
[2016-07-29 07:39] LABS: APTT 30.3 SECONDS (22.8-39.4)
--- NOTE | 2016-07-29 07:45 | NUR ---
DR. CH AT BEDSIDE. REPORTED TO HIM THAT PT RECIEVED MORPHINE QH OVER NIGHT AND COMPLAINED OF CP WITH PAIN RADIATING DOWN TO LEFT ARM. STATED TO OBTAIN AN EKG TO ASSESS ANY CHANGES FROM YESTERDAYS. IBAP WEANED DOWN TO 1:3. WILL CONT TO ASSESS FOR CHANGES. VS WITHIN PARAMETERS AT THIS TIME.
[2016-07-29 08:21] LABS: LYMPHOCYTES 8 % (15-50); MONOCYTES 4 % (2-11); NEUTROPHILS 85 % (40-80); PLATELET ESTIMATE NORMAL
--- NOTE | 2016-07-29 08:30 | NUR ---
EKG'S FROM 07/28/16 AND 07/29/[address] HERNANDEZ OFFICE. RECIEVED A CALL FROM DR. CH STATING THAT THERE WAS NOT A SIGNIFICANT DIFFERENCE BETWEEN THE TWO. ORDERS RECIEVED.
--- NOTE | 2016-07-29 09:30 | NUR ---
IV TO LEFT AC ACCIDENTALLY PULLED WHEN PT REPOSITIONING HIMSELF. D/C'D WITH CATH INTACT. NO ISSUES NOTED UPON REMOVAL.
--- NOTE | 2016-07-29 10:00 | NUR ---
IV RESTART ATTEMPTED X3 UNSUCCESSFUL.
--- NOTE | 2016-07-29 11:00 | NUR ---
REASSESSMENT COMPLETE PER FLOWSHEET. NO CHANGES NOTED AT THIS TIME. WILL CONT 1:1 CARE.
--- NOTE | 2016-07-29 12:30 | NUR ---
DR. CH AT BEDSIDE TO PULL IABP. NO ISSUES NOTED UPON REMOVAL. MANUAL PRESSURE APPLIED FOR 5 MIN THEM FEM STOP APPLIED TO LEFT GROIN. NO BLEEDING NOTED. WILL MONITOR FOR A HEMATOMA. PT PULSES DOPPLERABLE.
--- NOTE | 2016-07-29 13:30 | NUR ---
PRESSURE REMOVED OFF OF IABP. NO BLEEDING NOTED TO LEFT GROIN. TISSUE SOFT AROUND POINT OF ENTRY. NO SIGNS OF HEMATOMA PRESENT. WILL CONT TO ASSESS. PT PULSE DOPPLERABLE.
--- NOTE | 2016-07-29 15:00 | NUR ---
OFFERED TO GIVE PT BATH TWICE TODAY. ALL LINENS AND SUPPLIES IN ROOM ON COUNTER. REFUSED. WILL TRY AGAIN AT A LATER TIME. NEW GOWN AND CLEAN BLANKET PLACED ON PT. CALL LIGHT IN REACH.
--- NOTE | 2016-07-29 17:30 | NUR ---
FSBS-67. WILL GIVE ORANGE JUICE AND RECHECK IN 30 MIN.
--- NOTE | 2016-07-29 19:28 | NUR ---
REPORT RECIEVED. ASSESSMENT COMPLETE PER FLOW SHEET. VSS. REFER FOR FINDINGS. GIVEN BB LINEN CHANGE. UP OOB TO CHAIR WITHOUT DIFFICULTY. GIVEN PM SNACK AND DIET COKE AT 100%. DENIES FURTHER NEEDS.
--- NOTE | 2016-07-29 23:49 | NUR ---
REASESSMENT COMPLETE PER FLOW SHEET. VSS. NO NEW CHANGES. WILL COTINUE TO MONITOR.
[2016-07-30] VITALS (11 sets, daily range): BP systolic 96–166; BP diastolic 50–70
--- NOTE | 2016-07-30 03:17 | NUR ---
REASSESSMENT COMPLETEPER FLOW SHEET. VSS. NO NEW CHANGES. PT SLEEPING COMFORTABLY WILL CONTINUE TO MONITOR.
--- NOTE | 2016-07-30 05:19 | NUR ---
PRN MORPHINE ADM FOR PAIN RADIATING FROM CHEST BACK AND HIPS. VSS. NO NEW CHANGES. WILL CONTINUE TO MONITOR
--- NOTE | 2016-07-30 07:15 | NUR ---
REPORT RECIEVED FROM ASSOCIATE CURATOR NURSE. ASSESSMENT COMPLETE PER FLOWSHEET. CALL LIGHT IN REACH. WILL CONT TO ASSESS FOR CHANGES.
--- NOTE | 2016-07-30 09:59 | NUR ---
Nutrition Follow Up: Pt reported that he was in pain at this time. He said that his appetite is okay. Pt is on an AHA diet. Wt stable. I>O. No BM recorded. Labs reviewed - Glucose WNL. Meds noted including Humalog. Rec continue current diet. RD will continue to monitor pt progress.
--- NOTE | 2016-07-30 10:15 | NUR ---
REPORT CALLED TO [facility] ON [facility] SURG FLOOR. WILL TRANSFER VIA W/C.
--- NOTE | 2016-07-30 11:00 | NUR ---
PT TRANSFERED TO MED SURG VIA W/C. ASSISSTED TO RECLINER. CALL LIGHT PLACED IN REACH.
--- NOTE | 2016-07-30 18:35 | NUR ---
WITHOUT CHANGES NOTED AT THIS TIME.
--- NOTE | 2016-07-30 20:10 | NUR ---
PT CO PAIN IN CHEST . COOL AND DRY MONITOR SHOWS SR. MED WITH MS 4MG. WILL CONTINUE TO MONITOR.
[2016-07-31 05:10] VITALS: BP 113/65
--- NOTE | 2016-07-31 07:20 | NUR ---
ASSESSMENT DONE. DENIES NEEDS.
[2016-07-31 08:00] VITALS: BP 115/73
--- NOTE | 2016-07-31 10:09 | NUR ---
RESTS IN BED WITH CALL LIGHT IN REACH. RESP UL ON . MONSERRAT NEEDS AT THIS TIME. WILL MONITOR.
--- NOTE | 2016-07-31 10:59 | OP ---
PATIENT NAME: MATT PABLO MEDICAL RECORD: [id number] :46 LOCATION:D. D.2121 ADMISSION DATE:07/27/16 SURGEON: CAMMY CH M.D. DATE OF OPERATION: 07/27/2016 PROCEDURES PERFORMED: 1. Selective coronary angiography. 2. PTCA and stent placed to the LAD. 3. Intra-aortic balloon pump insertion. INDICATION: A 71-year-old gentleman presents with acute anterior wall myocardial infarction. EQUIPMENT USED: Diagnostic 5-[place] JL4, Shelton right. INTERVENTION: A 6-[place] XB LAD guide, BMW guide wire, 3.[address] Clair balloon, 2.[address] Clair balloon, 2.5 x 26 mm Integrity stent, 7-[place] intra-aortic balloon pump. TECHNIQUE: A 6-[place] sheath was inserted in a retrograde fashion in the right common femoral artery. Next, selective coronary angiography was performed in standard 5-[place] JL4 and Shelton right. CORONARY ANATOMY: 1. Left main: Left main trunk is moderate in caliber. It gives rise to the LAD and circumflex. There is no obstruction. 2. LAD: This vessel has been stented in the proximal mid segment. The vessel is 100% occluded just beyond the origin of the vessel. 3. Circumflex: This vessel is 100% occluded in the proximal segment. This is a known chronic occlusion. 4. Right coronary: This vessel is large in caliber and dominant. It has mild irregularities throughout its course, but no obstruction seen. DESCRIPTION OF INTERVENTION: A 100 units per kilogram of heparin was infused. A 6-[place] XB LAD guide was advanced and engaged in the left main coronary artery. Next, a BMW guide wire was used to traverse the occlusion placed at the apex. A 3.[address] Clair balloon was used to predilate the proximal LAD. At this point, flow was restored at the mid vessel. However, at the mid vessel, there is no flow seen to the apex. At this point, a 2.[address] Clair balloon was advanced and inflations was performed the mid and distal LAD. Some flow was restored, but there appeared to be a flow-limiting dissection in the mid LAD distal to the existing stent. At this point, a 2.5 x 26 mm Integrity stent was placed across this area of question and deployed at 12 atmospheres. Injection revealed worship of flow. At this point, the patient became quite hypotensive. He had EMEKA 1 flow through the distal LAD. At this point, the left groin was prepped. A 7-[place] sheath was placed in retrograde fashion in the left common femoral. Next, the intra-aortic balloon pump was inserted and advanced to the level of the carotid. The balloon was then filled and showed good augmentation. He was placed at 1:1. At this point, Intracoronary nitroglycerin was given to the balloon into the mid LAD. Injections revealed worship of flow to the apex. There is no evidence of any flow-limiting dissection. The patient's blood pressure began to improve with intra-aortic balloon pump insertion. At this point, the wire and guide were removed. IMPRESSION: Successful percutaneous transluminal coronary angioplasty and OPERATIVE REPORT [id number] MATT PABLO BERTA stenting to the LAD with 0% residual stenosis. TRANSINT:[id number] Voice Confirmation ID: [id number] DOCUMENT ID: [id number] CAMMY CH M.D. at 1059 CC: [id number] DICTATION DATE: 07/27/16 1309 PACKAGING OPERATOR: 07/27/16 1504 ADM IN [place] [id number] [place] [address]
--- NOTE | 2016-07-31 10:59 | EC ---
PATIENT:MATT PABLO DATE OF SERVICE: 07/27/16 SEX: M MEDICAL RECORD: [id number] DATE OF : [birth year] LOCATION:D. D.212 AGE OF PATIENT: 71 ADMISSION DATE: 07/27/16 REFERRING PHYSICIAN: INTERPRETING PHYSICIAN: CAMMY EDOUARD M.D. ECHOCARDIOGRAM REPORT ECHO CHARGES 4 ECHO COMPLETE CLINICAL DIAGNOSIS: ACUTE ANTERIOR AR ECHOCARDIOGRAPHIC MEASUREMENTS (adult normal given) AC root (d.<3.7cm) 3.2 LV Septum d (<1.2 cm> 1.5 Valve Excursion 1.7 LV Septum (systole) 1.9 Left Atria (s.<4.0cm> 3.4 LVPW d(<1.2cm) 1.2 RV (d.<2.3cm) 2.4 LVPW (sytole) 2.0 LV diastole(<5.6CM) 6.3 MV E-F(>70mm/sec) LV systole 5.0 LVOT Diameter 1.8 MV exc.(>10mm) Est.ejection fraction (50-75%) Pericardial Effusion N DOPPLER: LVIT A 48.0 E 106 LA RVSP 64.0 LVOT 79.0 AOP1/2T Asc. Ao 153 RVOT 73.0 RA PA 72.0 AV Gradient Peak 9.3 AV Mean 4.2 AV Area 1.2 MV Gradient Peak 3.8 MV Mean 1.5 MV Area COMMENTS: Bushel Girl: Kelly DEJESUSOE Pouring Crane Operator:2 Dr. Edouard TAPE# PACS DATE OF SERVICE: 07/28/2016 INDICATION: Acute anterior wall myocardial infarction. DESCRIPTION: Left ventricle is moderately dilated. There is severe LV dysfunction noted. The anterior wall and lateral wall are severely hypokinetic. Estimated ejection fraction is in the order of 20%. Mitral valve is structurally normal. There is mild regurgitation seen. Left atrium is normal size. The aortic valve is trileaflet. There is mild insufficiency seen, but no evidence of stenosis. Right ventricle appears normal size and function. ECHOCARDIOGRAM REPORT [id number] MATT PABLO Tricuspid valve is normal. There is mild regurgitation seen. Right ventricular systolic pressure is elevated at 64 mmHg. There is no pericardial effusion noted. IMPRESSION: 1. Severe left ventricular dysfunction with hypokinesis of anterior and lateral norwood, ejection fraction 20%. 2. Moderate mitral regurgitation. 3. Mild tricuspid regurgitation with elevated pulmonary pressures. TRANSINT:[id number] Voice Confirmation ID: [id number] DOCUMENT ID: [id number] CAMMY EDOUARD M.D. at 1059 CC: [id number] DICTATION DATE: 07/28/16 1450 COLLAR BASTER JUMPBASTING: 07/28/16 1532 ADM IN [id number] [place] [address]
[2016-07-31 11:35] VITALS: BP 111/67
[2016-07-31 15:27] VITALS: BP 109/67
--- NOTE | 2016-07-31 16:54 | NUR ---
Patient Name: MTAT PABLO Admission Status: ER Accout number: [id number] Admission Date: 07-27-2016 : 1945 Admission Diagnosis:ST ELEVATION (STEMI) MYOCARDIAL INFARCTION OF [facility] SITE Attending: LAINEY Current LOS: 4 Anticipated DC Date: TO BE DETERMINED Planned Disposition: Home Primary Insurance: [facility] Discharge Planning Comments: * Is the patient Alert and Oriented? Yes 0 * How many steps to enter\exit or inside your home? NONE 0 * PCP DR. OLEA IN [place] 0 * Pharmacy [facility] ON [address] 0 * Preadmission Environment Home with Family 0 * ADLs Independent 0 * Equipment Cane 0 * Other Equipment NO MEDICAL EQUIPMENT PROVIDER PREFERENCE 0 * List name and contact numbers for known caregivers / representatives who currently or will assist patient after discharge: CHICO GALE, BROTHER, 0 * Community resources currently utilized None 0 * Please name any agencies selected above. NONE 0 * Additional services required to return to the preadmission environment? No 0 * Can the patient safely return to the preadmission environment? Yes 0 * Has this patient been hospitalized within the prior 30 days at any hospital? No 0 CM MET WITH PT IN ROOM TO DISCUSS DISCHARGE PLANNING AND NEEDS. PT REPORTS LIVING AT HOME INDEPENDENTLY WITH HIS BROTHER AND BROTHER'S . PT HAS A CANE WITH NO MEDICAL EQUIPMENT PROVIDER PREFERENCE. PT HAS NO OUTSIDE SERVICES ASSISTING IN THE HOME. CM DISCUSSED AVAILABILITY OF HOME HEALTH, REHAB SERVICES AND MEDICAL EQUIPMENT. PT DENIES DISCHARGE NEEDS, REPORTS HIS BROTHER WILL PICK HIM UP FOR DISCHARGE HOME. IMPORTANT MESSAGE FROM MEDICARE PROVIDED AND EXPLAINED. Janitor Cleaner: Mio Palacio
--- NOTE | 2016-07-31 17:39 | NUR ---
FAMILY AT SIDE. WITHOUT CHANGES OR DISTRESS NOTED AT THIS TIME
[2016-07-31 19:00] VITALS: BP 112/71
--- NOTE | 2016-07-31 20:15 | NUR ---
PT RESTING IN BED. SR WITH PVC'S. O2 @ 5LNC WITH NONLABORED RESPIRATIONS. DRESSING INTACT TO RIGHT GROIN. CPOC. SEE SHIFT ASSESSMENT.
--- NOTE | 2016-07-31 20:27 | NUR ---
PT RESTING IN BED. ALERT/ORIENTED. O2 @ 5L/NC WITH MILD DYSPNEA. SR WITH PVCS. SALINE LOCK TO LFA. PT DENIES CHEST PAIN, STATES "I'M NOT EVEN SURE WHY I AM HERE". SEE SHIFT ASSESSMENT. CPOC.
[2016-07-31 23:00] VITALS: BP 115/74
--- NOTE | 2016-07-31 23:40 | NUR ---
PT AWAKE WITH C/O PAIN AND DISCOMFORT. MEDICATED WITH MORPHINE 4MG SIVP VIA LEFT A/C SALINE LOCK. PT PULLED UP AND REPOSITIONED. CALL LIGHT IN REACH.
--- NOTE | 2016-08-01 03:41 | NUR ---
RESTING IN BED WITH NO DISTRESS. CPOC. CALL LIGHT IN REACH.
[2016-08-01 06:42] VITALS: BP 108/69
--- NOTE | 2016-08-01 08:26 | NUR ---
AWAKE CO PAIN CHEST PAIN BUT PULSE IS 88 . NO SOB NOR DIAPHORETIC. INFORMED PT IT IS TOO EARLY FOR PAIN MED. MONITOR SHOWS SR @ 88.
[2016-08-01 08:44] VITALS: BP 116/76
[2016-08-01 12:26] VITALS: BP 105/72
[2016-08-01 16:15] VITALS: BP 117/73
[2016-08-01 20:21] VITALS: BP 123/80
--- NOTE | 2016-08-01 21:59 | NUR ---
PT AWAKE, LYING IN BED. SAYS HE GETS TO GO HOME TOMORROW. WANTS NURSE TO UNDERSTAND THAT HE MUST HAVE OXYGEN WHEN HE GOES HOME. PT HAS NOT PREVIOUSLY BEEN ON HOME O2. WILL LEAVE MESSAGE FOR CASEMANAGER TO FOLLOW UP. HS MEDS GIVEN. PT REQUESTED PAIN MED TO HELP HIM BE COMFORTABLE. MSO4 4MG SIVP GIVEN, WELL HIS NEXT DOSE OF SOLUMEDROL SO THAT HE WILL NOT BE AWAKENED AT 2330. WILL MONITOR. CALL LIGHT IN REACH. CPOC.
[2016-08-02 00:28] VITALS: BP 105/68
[2016-08-02 04:13] VITALS: BP 117/78
[2016-08-02 08:36] VITALS: BP 115/68
--- NOTE | 2016-08-02 09:41 | NUR ---
RESTING QUIETLY NAD NOTED DR REED AT BEDSIDE PT TO BEW DISCHARGED
--- NOTE | 2016-08-02 10:46 | NUR ---
PT TO BE DISCHARGED. IV REMOVED WITH TIP INTACT. NO NEEDS VOICED
[2016-08-02] MEDS ORDERED: COREG 3.1253.125 MG PO (11:05)
--- NOTE | 2016-08-02 11:09 | NUR ---
TELEPHONE ORDER RECEIVED FROM DR REED TO RESUME COREG. LOW DOSE ADE INHIBITOR DEFERRED AT THSI TIME DUE TO MARGINAL PRESSURES. PATIENT TO RESUME PLAVIX/ASA MEDICATION REGIMEN.
--- NOTE | 2016-08-02 12:10 | NUR ---
TO PRIVATE CAR PER ABBY. 02 SAT CHECKED AND WAS 96% ON ROOM AIR
== END 2016-08-02 12:11 | disposition home or self-care (01) | DRG 271 ==
LOC: D.ER 11:04 → D.CVICU 11:42 → D.M2 07-30 10:43
PROVIDERS: Emergency Medicine; ADMIT Internal Medicine Cardiovascular Disease
PROC: B2111ZZ Fluoroscopy of Multiple Coronary Arteries using Low Osmolar Contrast (ICD-10-PCS; 2016-07-27)
PROC: 02703DZ Dilation of Coronary Artery, One Artery with Intraluminal Device, Percutaneous Approach (ICD-10-PCS; principal; 2016-07-27 11:30)
PROC: 5A02210 Assistance with Cardiac Output using Balloon Pump, Continuous (ICD-10-PCS; 2016-07-27 11:30)
PROC: 4A023N7 Measurement of Cardiac Sampling and Pressure, Left Heart, Percutaneous Approach (ICD-10-PCS; 2016-07-27 11:30)
DX: I21.09 ST elevation (STEMI) myocardial infarction involving other coronary artery of anterior wall (principal); I47.2 Ventricular tachycardia; I31.9 Disease of pericardium, unspecified; I25.10 Atherosclerotic heart disease of native coronary artery without angina pectoris; E11.9 Type 2 diabetes mellitus without complications; I10 Essential (primary) hypertension; I73.9 Peripheral vascular disease, unspecified; F03.90 Unspecified dementia, unspecified severity, without behavioral disturbance, psychotic disturbance, mood disturbance, and anxiety; J44.9 Chronic obstructive pulmonary disease, unspecified; E78.5 Hyperlipidemia, unspecified; K21.9 Gastro-esophageal reflux disease without esophagitis; F41.9 Anxiety disorder, unspecified; F32.9 Major depressive disorder, single episode, unspecified; Z72.0 Tobacco use

== ENCOUNTER 2016-08-13 05:28 | Inpatient (IN) | payer MEDICARE ==
[~2016-08-13] VITALS: Ht 170.2 cm; Wt 76.8 kg
--- NOTE | ~2016-08-13 | HEMODYNAMI ---
PATIENT:MATT PABLO MEDICAL RECORD: [id number] : 47 [facility]ICU [id number] ADMISSION DATE: 08/13/16 Generatedon:08/13/20168:02 Patient name: MATT PABLO Patient #: [id number] SSN: [id number] : 1945 Date of study: 08/13/2016 Page: Of Hemodynamic Procedure Report Patient Data Patient Demographics Procedure consent was obtained First Name: MATT Gender: Male Last Name: SAMY : 1945 Middle Initial: BERTA Age: 71 year(s) Patient #: [id number] Race: SSN: [id number] Additional ID: [id number] Contact details [address]: [address] [place] [address] State: [place] City: [place] Zip code: [address] Past Medical History History of disease Date Diagnosis Comments CAD Allergies Allergen Reaction Date Comments Reported Other 05/24/2014 oxycodone allergy Other 05/24/2014 propoxyphene allergy Other 05/24/2014 napsylate allergy Other 05/24/2014 tramadol allergy Other 03/19/2016 Oxycodone, HCL, allergy Tramadol HCL, Darvocet Other 07/20/2016 propoxyphhene, allergy napsylate,tramadol,HCL Admission Admission Data Admission Date: 08/13/2016 Admission Time: 7:06 Arrival Date: 08/13/2016 Arrival Time: 5:28 Admit Source: Emergency Insurance Payor: Medicare department Room #: D.ICU Height (in.): 67 BSA: 1.88 (m2) Height (cm.): 170.18 BMI: 26.47 (kg/m2) Weight (lbs.): 169 Weight (kg.): 76.66 Lab Results Lab Result Date: 08/13/2016 Lab Result Time: 0:00 Biochemistry Name Units Result Min Max BUN mg/dl 72 --(----)-* 7 18 Creatinine mg/dl 2.1 --(----)-* 0.6 1.3 CBC Name Units Result Min Max Hemoglobin g/dl 9.5 *-(----)-- 13.5 17.5 Procedure Procedure Types Cath Procedure Diagnostic Procedure [facility] w/Coronaries PCI Procedure PTCA Initial PTCA Additional Miscellaneous Procedures Moderate Sedation up to 15 minutes Procedure Description Procedure Date Procedure Date: 08/13/2016 Procedure Start Time: 7:41 Procedure End Time: 7:57 Procedure Staff Name Function Ted Justice MD Performing Physician Ramírez Rahman RN Nurse Viktoria Kapoor RT Monitor Steven Olson RT Scrub Procedure Data Cath Procedure Fluoroscopy Diagnostic fluoroscopy Total fluoroscopy Time: 5.8 time: 5.8 min min Diagnostic fluoroscopy Total fluoroscopy dose: 638 dose: 638 mGy mGy Contrast Material Contrast Material Type Amount (ml) Isovue 370 98 Entry Location Entry Primary Successful Side Size Upsize Upsize Entry Closure Succes sful Closure Location (Fr) 1 (Fr) 2 (Fr) Remarks Device Remarks Femoral Right 6 Fr Exoseal artery Short Estimated blood loss: 5 ml Diagnostic catheters Device Type Used For End Catheter Placement Cordis 5Fr Pigtail LV Angiography Catheter (MP) Cordis 5Fr JL 4.0 Left Coronary Catheter (MP) Angiography Cordis 5Fr 3DRC Catheter Right Coronary (MP) Angiography Procedure Complications No complications Procedure Medications Medication Administration Route Dosage Oxygen NC 2 l/min Heparin Flush Bag added to field 2 bags (1000units/500ml NS) 0.9% NaCl I.V. 100 ml/hr Plavix P.O. 600 mg Fentanyl I.V. 50 mcg Versed I.V. 1 mg Fentanyl I.V. 50 mcg Versed I.V. 1 mg Integrilin (Bolus I.V. 6.8 ml 2mg/ml) Hemodynamics Rest BSA: 1.88 (m2) HGB: 9.5 (g/dl) O2 Consumption: Estimated: 229.99 (ml/min) O2 Con sumption indexed: Estimated:122.34 (ml/min/m) Heart Rate: 87 (bpm) Snapshots Pre Cath Intra NCS Post Cath Vital Signs Time Heart Resp SPO2 etCO2 PR7gvil NIBP Rhythm Pain Sedation Rate (ipm) (%) (mmHg) (mmHg) (mmHg) Status Level (bpm) 7:27:50 87 17 100 0 0 120/73(84) NSR 0 (11) 10(A) , No pain 7:32:00 86 18 100 0 0 111/67(89) NSR 0 (11) 10(A) , No pain 7:36:05 85 16 100 0 0 117/70(92) NSR 0 (11) 10(A) , No pain 7:40:15 83 19 100 0 0 112/59(90) NSR 0 (11) 10(A) , No pain 7:44:25 83 17 100 0 0 105/60(87) NSR 0 (11) 9(A) , No pain 7:48:29 84 17 100 0 0 103/68(83) NSR 0 (11) 9(A) , No pain 7:52:32 83 18 100 0 0 100/68(82) NSR 0 (11) 9(A) , No pain 7:56:34 83 17 100 0 0 109/67(90) NSR 0 (11) 9(A) , No pain 7:59:22 81 18 98 0 0 100/63(80) NSR 0 (11) 9(A) , No pain Medications Time Medication Route Dose Verified Delivered Reason Notes Effectiveness by by 7:37:24 Oxygen NC 2 Ramírez Ramírez Per l/min Josiah Rahman RN physician RN 7:37:33 Heparin Flush added 2 Ramírez Ramírez used for Bag to bags Josiah Rahman RN procedure (1000units/500ml field RN NS) 7:37:43 0.9% NaCl I.V. 100 Ramírez Ramírez Per ml/hr Josiah Rahman RN physician RN 7:38:01 Plavix P.O. 600 Ramírez Ramírez for mg Josiah Rahman RN antiplatelet RN therapy 7:38:12 Fentanyl I.V. 50 Ramírez Ramírez for sedation mcg Josiah Rahman RN RN 7:38:19 Versed I.V. 1 mg Ramírez Ramírez for sedation Josiah Rahman RN RN 7:40:48 Fentanyl I.V. 50 Ramírez Ramírez for sedation mcg Josiah Rahman RN RN 7:40:53 Versed I.V. 1 mg Ramírez Ramírez for sedation Josiah Rahman RN RN 7:45:20 Integrilin I.V. 6.8 Ramírez Ramírez for wasted (Bolus 2mg/ml) ml Josiah Rahman RN antiplatelet 3.2mL of RN therapy integrilin bolus Procedure Log Time Note 7:10:44 Diagnostic Cath status Emergency 7:10:46 Ramírez Rahman RN sent for patient. Start room use. 7:10:47 Time tracking: Regular hours 7:10:51 Plan of Care:Hemodynamics will remain stable., Cardiac rhythm will remain stable., Comfort level will be maintained., Respiratory function will remain adequate., Patient/ family verbilizes understanding of procedure., Procedure tolerated without complication., Recovers from procedure without complications.. 7:21:07 Patient received from ED to CCL 1 Alert and oriented. Tansferred to table in Supine position. 7:21:08 Warm blankets applied, and bria hugger turned on for patient comfort. 7:21:08 Correct patient and procedure confirmed by team. 7:21:09 ECG and BP/O2 sat monitors applied to patient. 7:21:11 Signed procedure consent form obtained from patient. 7:26:48 Vital chart was started 7:26:50 Baseline sample Acquired. 7:29:03 Baseline sample Acquired. 7:29:08 Rhythm: sinus rhythm 7:29:10 Full Disclosure recording started 7:30:07 H&P Date Dictated: 08/13/2016 New H&P dictated by physician.. 7:30:09 Pre-procedure instructions explained to patient. 7:30:09 Pre-op teaching completed and patient verbalized understanding. 7:30:10 Family in waiting room. 7:30:12 Patient NPO since Midnight. 7:30:47 Is the patient allergic to Iodine/contrast media? No. 7:30:52 Was the patient premedicated? No 7:30:53 Is patient on blood thinner?No 7:30:54 Patient diabetic? Yes. 7:30:56 If diabetic: On Metformin? Unknown 7:31:09 Previous problem with sedation/anesthesia? No ? 7:31:11 Snore? No 7:31:12 Sleep apnea? No 7:31:14 Deviated septum? No 7:31:15 Opens mouth fully? Yes 7:31:16 Sticks out tongue? Yes 7:31:23 Airway obstruction? No ? 7:31:30 Dentures? No lost teeth 7:31:44 Pre procedure: right dorsailis pedis pulse 1+ Palpable, but thready & weak; easily obliterated 7:31:49 Patient pain scale 0/10 ?. 7:31:57 IV patent on arrival in left forearm with 0.9% NaCl at O. 7:33:53 Lab Result : BUN 72 mg/dl 7:33:53 Lab Result : Creatinine 2.1 mg/dl 7:33:53 Lab Result : Hemoglobin 9.5 g/dl 7:33:57 Lab results completed and on chart. 7:34:00 Right groin area was prepped with chlora-prep and draped in sterile fashion 7:34:01 Alarms reviewed by R. N. 7:34:02 Sharps counted by scrub and verified by R.N. 7:34:03 Physician arrived 7:34:03 --------ALL STOP TIME OUT------ 7:34:04 Final Timeout: patient, procedure, and site verified with staff and physician. All members of the team are in agreement. 7:34:06 Right groin site verified by team. 7:34:09 Physical assessment completed. ASA score P 2 - A patient with mild systemic disease as per Ted Justice MD. 7:34:12 Sedation plan: IV Moderate Sedation Versed, Fentanyl 7:34:16 Use device set Femoral Dx 7:34:17 Acist Syringe opened to sterile field. 7:34:18 Bag Decanter opened to sterile field. 7:34:19 Medline Cath Pack opened to sterile field. 7:34:20 St Buck 260cm J .035 wire opened to sterile field. 7:34:21 Acist Hand Control opened to sterile field. 7:34:21 Acist Manifold opened to sterile field. 7:34:22 Diagnostic Infinity 5Fr Multipack catheter opened to sterile field. 7:34:22 Tegaderm 4 x 4 opened to sterile field. 7:34:38 Terumo 6Fr Pacifica Sheath opened to sterile field. 7:36:45 Zero performed for pressure channel P1 7:37:24 Oxygen 2 l/min NC was administered by Ramírez Rahman RN; Per physician; 7:37:33 Heparin Flush Bag (1000units/500ml NS) 2 bags added to field was administered by Ramírez Rahman RN; used for procedure; 7:37:43 0.9% NaCl 100 ml/hr I.V. was administered by Ramírez Rahman RN; Per physician; 7:38:01 Plavix 600 mg P.O. was administered by Ramírez Rahman RN; for antiplatelet therapy; 7:38:12 Fentanyl 50 mcg I.V. was administered by Ramírez Rahman RN; for sedation; 7:38:19 Versed 1 mg I.V. was administered by Ramírez Rahman RN; for sedation; 7:40:48 Fentanyl 50 mcg I.V. was administered by Ramírez Rahman RN; for sedation; 7:40:53 Procedure started. 7:40:53 Versed 1 mg I.V. was administered by Ramírez Rahman RN; for sedation; 7:41:38 Local anesthetic to right femoral artery with Lidocaine 2% by Ted Justice MD.INITIAL ACCESS ONLY 7:41:48 A 6 Fr Short sheath was inserted into the Right Femoral artery 7:41:58 A Cordis 5Fr Pigtail Catheter (MP) was advanced over the wire and used for LV Angiography. 7:42:06 LV gram done using MATHIS 7:42:09 Injector settings: Ml/sec: 5, Volume: 15, 7:42:15 EF : 20 % 7:42:19 Catheter removed. 7:42:23 A Cordis 5Fr JL 4.0 Catheter (MP) was advanced over the wire and used for Left Coronary Angiography. 7:42:52 LCA angiography performed. 7:43:14 Injector settings: Ml/sec: 3, Volume: 6, 7:43:51 Catheter removed. 7:43:58 A Cordis 5Fr 3DRC Catheter (MP) was advanced over the wire and used for Right Coronary Angiography. 7:44:01 RCA angiography performed. 7:44:04 Injector settings: Ml/sec: 3, Volume: 6, 7:44:10 Catheter removed. 7:44:31 Medtronic Launcher 6Fr EBU 3.0 guide catheter opened to sterile field. 7:44:32 Julien Whisper J 300cm 0.014 guide wire opened to sterile field. 7:44:33 beRecruited BasixCompak Inflation Kit opened to sterile field. 7:44:37 Proceeding to intervention. 7:44:44 6 Fr ebu 3 guide catheter was inserted over the wire 7:45:20 Integrilin (Bolus 2mg/ml) 6.8 ml I.V. was administered by Ramírez Rahman RN; for antiplatelet therapy; wasted 3.2mL of integrilin bolus 7:47:18 Guide Catheter removed. unable to cannulate vessel. 7:47:37 Cordis 6FR XBLAD 3.5 guide catheter opened to sterile field. 7:48:20 whisper wire advanced. 7:48:31 Inflation number: 1 A [place] Sci Richardson 3.0 X 20 balloon was prepped and advanced across the Prox LAD, then inflated to 13 JUSTIN for 0:10 (min:sec). 7:48:45 Inflation number: 2 The [place] Sci Richardson 3.0 X 20 balloon was reinflated across the Prox LAD, to 13 JUSTIN for 0:10 (min:sec). 7:49:56 Inflation number: 3 The [place] Sci Richardson 3.0 X 20 balloon was reinflated across the Prox LAD, to 13 JUSTIN for 0:10 (min:sec). 7:51:11 Balloon removed over the wire. 7:51:18 Wire redirected to diag. 7:52:41 Inflation number: 1 A Euphora 2.0 x 12 Balloon was prepped and advanced across the 1st Diag, then inflated to 11 JUSTIN for 0:10 (min:sec). 7:52:59 Inflation number: 2 The Euphora 2.0 x 12 Balloon was reinflated across the 1st Diag, to 13 JUSTIN for 0:10 (min:sec). 7:54:30 Balloon removed over the wire. 7:54:32 Wire removed. 7:54:32 Guide catheter removed. 7:54:42 Cordis 6Fr Exoseal opened to sterile field. 7:54:57 Sheath removed intact; hemostasis achieved with Exoseal to the Right Femoral artery. 7:54:59 Procedure ended.(Physican Out) 7:55:26 Fluoroscopy time 05.80 minutes. 7:55:31 Fluoroscopy dose: 638 mGy 7:55:31 Flurop Dose total: 638 7:55:39 Contrast amount:Isovue 370 98ml. 7:55:41 Sharps counted by scrub and verified by R.N. 7:55:49 Insertion/operative site no bleeding no hematoma. 7:55:54 Post-op/insertion site Right Femoral artery dressed using a 4 x 4 and Tegaderm. 7:56:03 Post right femoral artery:stable 7:56:05 Post Procedure Pulses reassessed and unchanged 7:56:17 Post procedure rhythm: unchanged. 7:56:27 Estimated blood loss: 5 ml 7:56:29 Post procedure instruction explained to patient.Patient verbalizes understanding. 7:56:29 Patient needs reinforcement of post procedure teaching. 7:57:01 Procedure type changed to Cath procedure, Diagnostic procedure, LHC, LHC w/Coronaries, PCI procedure, PTCA Initial, PTCA Additional, Miscellaneous Procedures, Moderate Sedation up to 15 minutes 7:57:21 Procedure and supply charges have been captured, reviewed, submitted and are correct. 7:57:25 Procedure Complication : No complications 7:57:28 Vital chart was stopped 7:57:28 See physician's report for complete and final results. 7:57:32 Report given to PCU. 7:57:36 Patient transfered to PCU with Stretcher. 7:57:39 Procedure ended. 7:57:39 Full Disclosure recording stopped 7:57:51 End room use (Document Last) 7:59:12 Admit Source: Emergency department 7:59:18 Arrival Date: 08/13/2016 5:28:00 AM 7:59:27 Insurance Payor : Medicare 8:00:11 Patient Height : 67 cm 8:00:16 Patient Weight : 169 kg Intervention Summary Intervention Notes Time ActionType Lesion and Equipment Action# Pressure Duration Attributes Used 7:48:31 Inflate Prox LAD [place] 1 13 00:10 balloon Sci Richardson 3.0 X 20 balloon 7:48:45 Reinflate Prox LAD [place] 2 13 00:10 balloon Sci Richardson 3.0 X 20 balloon 7:49:56 Reinflate Prox LAD [place] 3 13 00:10 balloon Sci Richardson 3.0 X 20 balloon 7:52:41 Inflate 1st Diag Euphora 1 11 00:10 balloon 2.0 x 12 Balloon 7:52:59 Reinflate 1st Diag Euphora 2 13 00:10 balloon 2.0 x 12 Balloon Device Usage Item Name Manufacture Quantity Catalog Number Hospital Part Current Mini [facility] Lot# / Charge Number Stock Stock Serial# Code Acist Acist 1 61884 950075 489849 831026 20 pic5 Bag Microtek 1 [facility] 799193 00743 735757 5 Dec[employer]rip[employer]obo [employer]. Medline Cardinal 1 [id number] 381364 72736 946257 [address] Buck 1 707578 930503 155435 651450 30 260cm J .035 wire Acist Hand Acist 1 96162 058783 543878 880710 5 Control Medical Systems Inc Acist Acist 1 19590 342755 408309 340463 5 Manifold Medical Systems Inc Diagnostic Cardinal 1 [id number] 910983 88375 067056 30 Infinity Health 5Fr Multipack catheter Tegaderm 4 3M 1 1626W 976616 548754 716165 5 x 4 Terumo 6Fr Terumo 1 [id number] 852234 702709 737852 40 Pacifica Sheath Cordis 5Fr Cardinal 1 409729 5 Pigtail Health Catheter (MP) Cordis 5Fr Cardinal 1 825765 5 JL 4.0 Health Catheter (MP) Cordis 5Fr Cardinal 1 343287 5 3DRC Health Catheter (MP) Medtronic Medtronic 1 [id number] 453220 41827 224661 0 Launcher 6Fr EBU 3.0 guide catheter Julien Julien 1 [id number] 190335 413225 195458 5 Whisper J Vascular 300cm 0.014 guide wire Merit Merit 1 [id number] 984276 341143 194240 15 GraphenicsohQFPay Medical Inflation Kit Cordis 6FR Cardinal 1 [id number] 223070 439707 263937 10 XBLAD 3.5 Health guide catheter [place] Sci [place] 1 [id number] 850912 315108 622103 1 [id number] Panoramic Power 3.0 X 20 balloon Euphora 2.0 Medtronic 1 [id number] 695386 371695 273809 5 [id number] x 12 Balloon Cordis 6Fr Cardinal 1 EX600 768235 130851 778734 10 BioPetroCleanbl[facility] DrinkWiser Signature Audit [place] Stage Time Signature Unsigned Intra-Procedure 08/13/2016 Viktoria Kapoor 8:02:36 AM RT(R) Signatures Monitor : Viktoria Kapoor RT Signature : Date : Time : [facility] [address] [place] [address]
[~2016-08-13 05:28] MED LIST changes: +COREG 3.1253.125 MG PO
[2016-08-13 05:56] LABS: BASOPHILS 0 % (0-2); EOSINOPHILS 0.1 % (0-7); HEMATOCRIT 29.4 % (42.0-54.0); HEMOGLOBIN 9.5 g/dL (13.5-17.5); IMMATURE GRANULOCYTES 0.7 % (0-5); LYMPHOCYTES 9.8 % (15-50); MCH 29.8 pg (26.0-34.0); MCHC 32.3 g/dL (31.0-37.0); MCV 92.2 fL (80.0-100.0); MEAN PLATELET VOLUME 12.3 fL (7.4-10.4); MONOCYTES 7.1 % (2-11); NEUTROPHILS 82.3 % (40-80); RBC 3.19 10x6/uL (4.20-6.10); RDW 16.2 % (11.5-14.5); WBC 13.7 10x3/uL (4.8-10.8)
[2016-08-13 05:58] LABS: PLATELET COUNT 195 10x3/uL (130-400)
[2016-08-13 06:12] LABS: ALBUMIN 2.7 g/dL (3.4-5.0); ALKALINE PHOSPHATASE 278 U/L (46-116); ALT (SGPT) 541 U/L (10-68); APTT 33.6 SECONDS (22.8-39.4); CALC OSMOLALITY 297 mosm/kg (275-300); CALCIUM 8.7 mg/dL (8.5-10.1); CARBON DIOXIDE 19.5 mmol/L (21.0-32.0); CHLORIDE - SERUM 104 mmol/L (98-107); CREATININE - SERUM 2.1 mg/dL (0.6-1.3); GLUCOSE 114 mg/dL (74-106); INR 1.81 (0.85-1.17); PROTEIN - SERUM 7.6 g/dL (6.4-8.2); SODIUM 138 mmol/L (136-145); UREA NITROGEN 72 mg/dL (7-18); eGFR NON AFRICAN AMERICAN 33 mL/min (90-120)
[2016-08-13 06:29] LABS: CHOL - HDL RATIO 2.8 ratio (2.3-4.9); CHOLESTEROL, TOTAL 55 mg/dL (0-200); CKMB 3.8 U/L (0.0-3.6); CREATINE KINASE 77 UL (21-232); HDL CHOLESTEROL 20 mg/dL (32-96); LDL CHOLESTEROL 23 mg/dL (0-100); LDL-HDL RATIO 1.2 ratio (1.5-3.5); PRO BNP 48665 pg/mL (0-125); TRIGLYCERIDE 64 mg/dL (30-200)
[2016-08-13 06:30] LABS: TROPONIN-I 1.293 ng/mL (0.000-0.060)
--- NOTE | 2016-08-13 08:22 | NUR ---
TRANSFER FROM LICENSED PHYSICAL THERAPIST ASSISTANT BY BED. VS WNL. RIGHT GROIN STABLE WITHOUT BLEEDING OR HEMATOMA NOTED. WILL MONITOR.
[2016-08-13 08:33] VITALS: BP 103/69; Ht 170.2 cm; Wt 76.8 kg
[2016-08-13 11:47] VITALS: BP 112/66
--- NOTE | 2016-08-13 12:22 | NUR ---
BED REST UP. GROIN STABLE.
[2016-08-13 15:59] VITALS: BP 93/22
--- NOTE | 2016-08-13 19:51 | NUR ---
RESUMED CARE OF PT, LYING IN BED RESPIRATIONS SHORT AND LABORED ON 2LPM VIA NC. STATES HE IS HAVING DIFFICULTY BREATHING. 99% ON PULSE OXIMETRY. LUNGS SOUND CLEAR. REPOSITIONED UP IN BED. WILL CONTINUE TO MONITOR. 58 SB ON TELEMETRY. RIGHT GROIN C/D/I. SEE NURSE ASSESSMENT.
[2016-08-13 20:00] VITALS: BP 91/31
--- NOTE | 2016-08-13 23:01 | NUR ---
RESPONDED TO VTACH NOTED ON TELEMETRY, PT FOUND UNRESPONSIVE AND GUPPY BREATHING, COLD AND CLAMMY. RAPID RESPONSE CALLED, IMMEDIATELY FOLLWED BY A CODE, AFTER UNABLE TO OBTAIN A PULSE.
--- NOTE | 2016-08-13 23:41 | NUR ---
CODE CALLED AT 2334, CALL INTO FAIRING WORKER. AWAITING CALL BACK.
--- NOTE | 2016-08-13 23:58 | NUR ---
SUSHMA NOTIFIED AND RULED OUT FOR DONATION. BROTHER, CHICO CALLED AND LEFT VOICEMAIL. AWAITING CALL BACK.
--- NOTE | 2016-08-14 00:29 | NUR ---
CHICO PABLO, BROTHER, NOTIFIED OF EXPIRATION. IN ROUTE.
--- NOTE | 2016-08-14 02:10 | NUR ---
HOME NOTIFIED, WILL BE USING [facility] IN [place]. NOTIFIED CORONERS OFFICE OF HOME
--- NOTE | 2016-08-19 18:07 | HP ---
PATIENT: MATT ROSA MEDICAL RECORD: [id number] ACCOUNT: [id number] LOCATION:[address] : [birth year] ADMISSION DATE: 08/13/16 HISTORY AND PHYSICAL EXAMINATION ADMITTING DIAGNOSES: 1. Acute anterior myocardial infarction. 2. Coronary artery disease. 3. Percutaneous transluminal coronary angioplasty stent of the LAD times 2 recently. 4. Plavix noncompliance. 5. Hypertension. 6. Hyperlipidemia. 7. Chronic obstructive pulmonary disease. 8. Smoking history. HISTORY OF PRESENT ILLNESS: Mr. Rosa is well known to us; on July 20, he presented with anginal symptomatology, found to have critical disease of the LAD, underwent successful PTCA stent of the LAD. He did not take his Plavix, did not get it filled. He came in 7 days later with acute thrombosis of the LAD. Dr. Edouard opened the LAD once again and made sure that he went home with aspirin and Plavix. He has been once again noncompliant with Plavix. He had vomiting and nausea, has not been taking any of his medications. He now comes back with an acute anterior myocardial infarction. His chest pain started at 4:00 a.m. this morning. He did receive thrombolytic therapy; however, he has had no change in his pain. ST elevation persists on EKG. PHYSICAL EXAMINATION: GENERAL APPEARANCE: Well-nourished, well-developed, appears stated age. Level of distress, comfortable. PSYCHIATRIC: Mental status, alert, normal affect. Orientation, oriented to time, place and person. EYES: Lids and conjunctiva, noninjected. No discharge, no pallor. ENT: Lips, teeth, gums, normal dentition. Oropharynx, no cyanosis, no pallor. NECK: Carotid arteries, bilateral normal upstroke, no bruits, no thrills. JUGULAR VEINS: No jugular venous pressure or distention. CERVICAL LYMPH NODES: Nontender, nonenlarged. THYROID: Not enlarged. Nontender. No nodules. LUNGS: Respiratory effort, unlabored. CHEST: Normal curvature. No thoracic deformity. No chest wall tenderness. Percussion, resonant. Auscultation, clear. No wheezes, no rales, no rhonchi. CARDIOVASCULAR: Precordial exam, nondisplaced. No heaves or pericardial thrills. Rate and rhythm, regular. Heart sounds, normal S1, normal S2. No S3, no gallop, no rub. Systolic murmur, not heard. Diastolic murmur, not heard. EXTREMITIES: No cyanosis, no edema. Peripheral pulses, full and equal in all extremities, except as noted. No bruits appreciated. ABDOMEN: Soft, nondistended. Normal aorta. No bruit. Nontender. No masses. Liver, nontender, no hepatomegaly. Spleen, nontender, no splenomegaly. MUSCULOSKELETAL: No joint tenderness. No joint swelling. No erythema. NEUROLOGICAL: Normal gait, normal strength, normal tone. SKIN: Warm and dry. REVIEW OF SYSTEMS: The patient reports easy bruising but reports no swollen glands. The patient reports no fever, no night sweats, no significant weight gain, no significant weight loss. No significant exercise tolerance. The HISTORY AND PHYSICAL [id number] MATT ROSA RAY patient reports no dry eyes, no irritation, no vision change. Patient reports no difficulty hearing and no ear pain. Patient reports no frequent nose bleeds or nose and sinus problems. Patient reports on arm pain on exertion. No shortness of breath while lying down. No history of heart murmur. Patient reports no cough, no wheezing or coughing up blood. Patient reports no abdominal pain, no vomiting. Normal appetite. No diarrhea and not vomiting blood. No nausea and no constipation. Patient reports no incontinence. No difficulty urinating. No hematuria. No increased frequency. Patient reports no muscle aches. No weakness, no arthralgias, no back pain. No swelling of the extremities. Patient reports no abnormal mole, no jaundice, no rashes. Reports no loss of consciousness. No weakness and no numbness. No seizures, dizziness, or headaches. The patient reports no depression, no sleep disturbance, feeling safe in a relationship and no alcohol abuse. Patient reports on fatigue. Reports no runny nose or sinus pressure. No itching, no hives, and no frequent sneezing. OVERALL IMPRESSION: Acute thrombosis of the left anterior descending, once again, secondary to not taking his Plavix. We will proceed with emergent coronary angiography. Further care depends upon findings of the angiography. TRANSINT:[id number] Voice Confirmation ID: [id number] DOCUMENT ID: [id number] CHING NAVARRETE MD at 9051 CC: [id number] DICTATION DATE: 08/13/16 0737 FINE PATCHER: 08/13/16 0832 DIS IN 08/13/16 [facility] [address] [facility] [place] [address]
--- NOTE | 2016-08-19 18:07 | OP ---
PATIENT NAME: MATT PABLO MEDICAL RECORD: [id number] :47 LOCATION:D.M2 D.2118 ADMISSION DATE:08/13/16 SURGEON: CHING NAVARRETE MD DATE OF OPERATION: 08/13/2016 PROCEDURES: 1. PTCA, LAD. 2. PTCA, LAD diagonal. 3. Left heart catheterization. 5. Selective coronary angiography. 6. Left ventriculogram. INDICATION: Acute myocardial infarction. PROCEDURE IN DETAIL: After informed consent was obtained and after detailed explanation of risks, benefits as well as alternative therapies, the patient elected to proceed with angiogram and angioplasty. The right femoral area was prepped and draped in normal sterile fashion. The right femoral artery was cannulated via modified Seldinger technique with placement of 6-Pashto sheath. All catheters exchanged through this sheath. FINDINGS: The left ventriculogram was performed in standard 30-degree MATHIS view, reveals global hypokinesis throughout all segments. Overall ejection fraction is 20%. SELECTIVE CORONARY ANGIOGRAPHY: 1. Left main showed no significant angiographic disease. 2. 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 3. Left anterior descending has previously placed stents, these are patent. There is thrombus in the mid LAD as well as the LAD diagonal. 4. Right coronary has mild irregularities, no flow-limiting stenosis. Previously placed stents are widely patent. PTCA OF THE LAD AND LAD DIAGONAL: Thrombolytic therapy had already been given. Obviously, the vessel had been mostly opened by thrombolytic therapy. We ballooned the remaining thrombus in the LAD and LAD diagonal with 3.0 and 2.0 balloon. Result was 0% residual stenosis. No further evidence of thrombus with baptism of EMEKA-3 flow. IMPRESSION: Successful percutaneous transluminal coronary angioplasty of the LAD with the remaining thrombus after the acute myocardial infarction in the LAD and LAD diagonal. No further thrombus burden remained after the ballooning and EMEKA-3 flow was restored. TRANSINT:[id number] Voice Confirmation ID: [id number] DOCUMENT ID: [id number] OPERATIVE REPORT [id number] MATT PABLO CHING NAVARRETE MD at 1807 CC: [id number] DICTATION DATE: 08/13/16 0801 LIME KILN OPERATOR: 08/13/16 0847 DIS IN 08/13/16 [facility] [address] [facility] [address]
--- NOTE | 2016-08-19 18:07 | DS ---
PATIENT:MATT ROSA :47 MEDICAL RECORD: [id number] DISCHARGE SUMMARY ADMISSION DATE: 08/13/16 DISCHARGE DATE: 08/13/16 DISCHARGE DIAGNOSES: 1. Acute anterior myocardial infarction. 2. Plavix noncompliance. 3. Coronary artery disease. 4. Hypertension. 5. Hyperlipidemia. HOSPITAL COURSE: Mr. Rosa presented for the second time in 2 weeks with an acute myocardial infarction from not taking his aspirin and Plavix, status post PTCA stent of his LAD 3 weeks ago. 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 He survived to receive thrombolytic therapy and intervention both times re-instituting flow down the LAD; however, both times, he did not take aspirin after the procedure despite our best efforts of even giving him the medications. He came back in once again with an acute closure of the LAD from antiplatelet noncompliance, underwent successful PTCA stent once again; however, then had a cardiopulmonary arrest all of a sudden, most likely free wall rupture and . TRANSINT:[id number] Voice Confirmation ID: [id number] DOCUMENT ID: [id number] CHING NAVARRETE MD at 1807 CC: [id number] DICTATION DATE: 08/14/16 0840 AUTOMOTIVE SERVICE CONSULTANT: 08/15/16 0139 DIS IN 08/13/16 [facility] [address] [place] [address]
--- NOTE | 2016-08-29 07:36 | DS ---
PATIENT:MATT PABLO :47 MEDICAL RECORD: [id number] DISCHARGE SUMMARY ADMISSION DATE: 08/13/16 DISCHARGE DATE: 08/13/16 DISCHARGE DIAGNOSES: 1. Acute anterior myocardial infarction. 2. Percutaneous transluminal coronary angioplasty stent left anterior descending. HOSPITAL COURSE: This is a gentleman who presents with acute anterior myocardial infarction due to noncompliance of his Plavix. He had closure of the LAD previously due to noncompliance with his Plavix. Once again was discharged with Plavix samples and medication, but did not take them, presented with acute closure of the LAD, underwent successful PTCA stent; however, had an abrupt demise and most likely secondary to free wall rupture. TRANSINT:[id number] Voice Confirmation ID: [id number] DOCUMENT ID: [id number] CHING NAVARRETE MD at 0736 CC: [id number] DICTATION DATE: 08/28/16901 FIRE OBSERVER: 08/29/16 0327 DIS IN 08/13/16 [id number] [place] [address]
== END 2016-08-13 23:53 | DRG 251 ==
LOC: D.ER 05:28 → D.M2 07:06 → D.ICU 07:06 → D.M2 07:06
PROVIDERS: Emergency Medicine; ADMIT Internal Medicine Interventional Cardiology
PROC: B2111ZZ Fluoroscopy of Multiple Coronary Arteries using Low Osmolar Contrast (ICD-10-PCS; 2016-08-13)
PROC: B2151ZZ Fluoroscopy of Left Heart using Low Osmolar Contrast (ICD-10-PCS; 2016-08-13)
PROC: 5A12012 Performance of Cardiac Output, Single, Manual (ICD-10-PCS; 2016-08-13)
PROC: 02703ZZ Dilation of Coronary Artery, One Artery, Percutaneous Approach (ICD-10-PCS; principal; 2016-08-13 09:45)
PROC: 4A023N7 Measurement of Cardiac Sampling and Pressure, Left Heart, Percutaneous Approach (ICD-10-PCS; 2016-08-13 09:45)
DX: I21.09 ST elevation (STEMI) myocardial infarction involving other coronary artery of anterior wall (principal); I25.10 Atherosclerotic heart disease of native coronary artery without angina pectoris; Z95.5 Presence of coronary angioplasty implant and graft; Z91.14 Patient's other noncompliance with medication regimen; I10 Essential (primary) hypertension; E78.5 Hyperlipidemia, unspecified; J44.9 Chronic obstructive pulmonary disease, unspecified; I46.9 Cardiac arrest, cause unspecified